=== PATIENT | male | born 1950 | race Caucasian/White ===

== ENCOUNTER → 2016-07-23 | Outpatient (REF) | payer MEDICARE | LOC: M SFHCCLAY 10:25 | PROVIDERS: ATTEND Family Medicine | DX: E11.9 Type 2 diabetes mellitus without complications (principal) ==

== ENCOUNTER → 2016-11-14 | Outpatient (REF) | payer MEDICARE ==
[2016-11-14 18:46] LABS: ALBUMIN 3.8 GM/DL (3.2-5.2); ANION GAP 6 MEQ/L (8-16); BLOOD UREA NITROGEN 27 MG/DL (7-18); CALCIUM LEVEL 8.5 MG/DL (8.8-10.2); CARBON DIOXIDE LEVEL 30 MEQ/L (21-32); CHLORIDE LEVEL 107 MEQ/L (98-107); CREATININE FOR GFR 1.24 MG/DL (0.70-1.30); GLOMERULAR FILTRATION RATE > 60.0 (>49); MAGNESIUM LEVEL 2.4 MG/DL (1.8-2.4); PHOSPHORUS LEVEL 3.7 MG/DL (2.5-4.9); POTASSIUM SERUM 4.6 MEQ/L (3.5-5.1); SODIUM LEVEL 143 MEQ/L (136-145)
[2016-11-14 19:38] LABS: GLUCOSE, FASTING 33 MG/DL (80-110)
== END ==
LOC: M LABDRAWC 17:18
PROVIDERS: ATTEND Physician Assistant
DX: I50.42 Chronic combined systolic (congestive) and diastolic (congestive) heart failure (principal); E11.9 Type 2 diabetes mellitus without complications; I25.810 Atherosclerosis of coronary artery bypass graft(s) without angina pectoris; G47.33 Obstructive sleep apnea (adult) (pediatric); Z68.41 Body mass index [BMI] 40.0-44.9, adult; Z79.4 Long term (current) use of insulin; Z79.82 Long term (current) use of aspirin; Z79.899 Other long term (current) drug therapy

== ENCOUNTER → 2016-11-14 | Outpatient (REF) | payer MEDICARE | LOC: M SFHCCLAY 14:04 | PROVIDERS: ATTEND Family Medicine | DX: E11.9 Type 2 diabetes mellitus without complications (principal) ==

== ENCOUNTER → 2016-12-31 | Outpatient (REF) | payer MEDICARE ==
[~2016-12-31] MED LIST: ALLO100T PO; AMLO10TA2 PO; ATOR80TA59 PO; CARV25TA PO; CLOP75TA2 PO; EYE5SOL OP; HUMU70IN SC; HUMU70IN SQ; ISOS120T4 PO; MAG400TA PO; NITR4TASL SL; OMEP20CA3 PO; POTA1TAB23 PO; RAMI10CA PO; SPIR25TA2 PO; TORS10TA3 PO
== END ==
LOC: M SFHCCLAY 11:17
PROVIDERS: ATTEND Family Medicine
DX: Z11.59 Encounter for screening for other viral diseases (principal)

== ENCOUNTER → 2017-02-14 | Outpatient (CLI) | payer MEDICARE ==
[2017-02-14 12:11] LABS: ANION GAP 5 MEQ/L (8-16); BLOOD UREA NITROGEN 29 MG/DL (7-18); CALCIUM LEVEL 8.7 MG/DL (8.8-10.2); CARBON DIOXIDE LEVEL 30 MEQ/L (21-32); CHLORIDE LEVEL 106 MEQ/L (98-107); CREATININE FOR GFR 1.14 MG/DL (0.70-1.30); GLOMERULAR FILTRATION RATE > 60.0 (>49); GLUCOSE, FASTING 45 MG/DL (80-110); POTASSIUM SERUM 4.3 MEQ/L (3.5-5.1); SODIUM LEVEL 141 MEQ/L (136-145)
== END ==
LOC: M LAB 10:43
PROVIDERS: ATTEND Ophthalmology
DX: E11.9 Type 2 diabetes mellitus without complications (principal)

== ENCOUNTER 2017-02-27 07:07 | Day surgery (SDC) | payer MEDICARE ==
[~2017-02-27] VITALS: Ht 180.3 cm; Wt 127.0 kg
[~2017-02-27 07:07] MED LIST changes: -EYE5SOL OP; +OFLOXACIN 0.3 % (OCUFLOX) OPTH SOL 5ML OD ONE; +PHENYLEPHRINE 2.5% OPHTH SOL 2ML OD ONE; +PROPARACAINE 0.5% OPHTH SOL 15ML OD ONE; +TROPICAMIDE 1% OPHTH SOLN 2ML OD ONE
[2017-02-27] MEDS ORDERED: POVIDONE-IODINE 5% OPHTH PREP SOL 30ML As Ordered ONE (07:53)
[2017-02-27] MEDS ORDERED: BALANCED SALT IRRIGATION SOLUTION 500ML BAG (FOR OR EYE MACHINE) As Ordered ONE (07:53)
[2017-02-27] MEDS ORDERED: ACETYLCHOLINE OPHTH SOLN 1% 2ML (MIOCHOL-E) As Ordered ONE (07:53)
[2017-02-27] MEDS ORDERED: LIDOCAINE 0.75%/EPINEPHRINE 0.025% IN BSS 1ML SYR INTRACAMERAL (OR ONLY) As Ordered ONE (07:54)
[2017-02-27] MEDS ORDERED: CEFUROXIME 1MG/0.1ML INTRACAMERAL INJ As Ordered ONE (07:54)
[2017-02-27] MEDS ORDERED: DUOVISC (0.50ML VISCOAT/0.55ML PROVISC) OPHTH KIT As Ordered ONE (07:55)
[2017-02-27] MEDS ORDERED: TETRACAINE 0.5% OPHTH SOLN 4ML As Ordered ONE (08:15)
[2017-02-27] MEDS ORDERED: fentaNYL 100 MCG/2 ML INJECTION (J3010) As Ordered ONE (08:18)
[2017-02-27] MEDS ORDERED: MIDAZOLAM INJ 2 MG/2 ML VIAL (J2250) As Ordered ONE (08:18)
[2017-02-27 09:20] VITALS: BP 107/56
[2017-02-27] MEDS ORDERED: LR 500 ML IV ONE (10:00)
--- NOTE | 2017-02-28 10:52 | RO ---
DATE OF PROCEDURE: 02/27/2017 PREOPERATIVE DIAGNOSIS: Visually significant nuclear sclerotic cataract right eye. POSTOPERATIVE DIAGNOSIS: Visually significant nuclear sclerotic cataract right eye. PROCEDURE: Cataract extraction with use of phacoemulsification, and placement of intraocular lens, AU00T0, 21.5D, right eye. SURGEON: Michael Nunn DO TANNER [facility] DRUM CONTINUOUS PROCESS: ANESTHESIA: Local with monitored anesthesia care (MAC). COMPLICATIONS: None. POSTOPERATIVE CONDITION: Stable. INDICATION FOR SURGERY: Blurred vision right eye affecting patient's activities of daily living. DESCRIPTION OF PROCEDURE: The patient was seen in the preoperative area and properly identified. The correct operative eye was identified and marked. Attention was turned to that eye. The patient received topical antibiotics in the preoperative area. The patient then received topical dilating drops consisting of Tropicamide and Phenylephrine. The patient was then transferred to the operating room. The correct side was re-identified. The patient received topical anesthetics and antibiotics on the surface of the eye. The eye was prepped and draped in a sterile fashion. The upper and lower eyelids were isolated with Tegaderm tape, and the lids were held open with an adjustable speculum. Using a sideport blade, a paracentesis incision was made. Intraocular preservative-free lidocaine was then injected into the anterior chamber. Viscoelastic was then injected into the anterior chamber through the paracentesis. Using a 2.4 mm sharp-tipped keratome, the anterior chamber was entered via a temporal clear corneal incision. A continuous curvilinear capsulorrhexis was created with the aid of a 26g cystotome and Utrata forceps. Hydrodissection was performed with balanced salt solution (BSS) on a blunt cannula until the nucleus was freely mobile. The crystalline lens was phacoemulsified and aspirated. Additional cohesive viscoelastic was placed into the capsular bag to deepen it. An AU00T0 lens 21.5D was placed into the capsular bag and confirmed by visualizing the continuous curvilinear capsulorrhexis. Additional irrigation and aspiration was used to remove cortical material and remaining viscoelastic. The clear corneal incision was hydrated with BSS on a blunt cannula. The lens was well positioned. The incisions were then tested for leaks and found to be negative. The eye was then palpated for appropriate pressure and adjusted accordingly with BSS. The eyelid speculum was carefully removed. A shield was placed. The patient tolerated the procedure well and was discharged to the recovery unit in a stable condition. [facility]
[2017-03-17] MEDS ORDERED: EYE5SOL OP (14:56)
== END 2017-02-27 09:30 | disposition home or self-care (01) ==
LOC: M SDC 07:07
PROVIDERS: ATTEND Ophthalmology
DX: H25.11 Age-related nuclear cataract, right eye (principal); E11.42 Type 2 diabetes mellitus with diabetic polyneuropathy; I25.810 Atherosclerosis of coronary artery bypass graft(s) without angina pectoris; I11.0 Hypertensive heart disease with heart failure; I25.2 Old myocardial infarction; I50.42 Chronic combined systolic (congestive) and diastolic (congestive) heart failure; I25.5 Ischemic cardiomyopathy; I35.8 Other nonrheumatic aortic valve disorders; I34.8 Other nonrheumatic mitral valve disorders; E78.2 Mixed hyperlipidemia; T88.59XD Other complications of anesthesia, subsequent encounter; M10.9 Gout, unspecified; Z88.8 Allergy status to other drugs, medicaments and biological substances; Z79.899 Other long term (current) drug therapy; Z79.82 Long term (current) use of aspirin; Z79.4 Long term (current) use of insulin; Z95.810 Presence of automatic (implantable) cardiac defibrillator; Z95.1 Presence of aortocoronary bypass graft
CPT/HCPCS: 66984; J2250; J3010; V2632

== ENCOUNTER → 2017-03-20 | Day surgery (SDC) | payer MEDICARE ==
[~2017-03-20] VITALS: Ht 180.3 cm; Wt 126.6 kg
[~2017-03-20] MED LIST changes: +ACETYLCHOLINE OPHTH SOLN 1% 2ML (MIOCHOL-E) As Ordered ONE; +BALANCED SALT IRRIGATION SOLUTION 500ML BAG (FOR OR EYE MACHINE) As Ordered ONE; +CEFUROXIME 1MG/0.1ML INTRACAMERAL INJ As Ordered ONE; +DUOVISC (0.50ML VISCOAT/0.55ML PROVISC) OPHTH KIT As Ordered ONE; +EYE5SOL OP; +LIDOCAINE 0.75%/EPINEPHRINE 0.025% IN BSS 1ML SYR INTRACAMERAL (OR ONLY) As Ordered ONE; +LR 1,000 ML IV SCH; +OFLOXACIN 0.3 % (OCUFLOX) OPTH SOL 5ML As Ordered ONE; -OFLOXACIN 0.3 % (OCUFLOX) OPTH SOL 5ML OD ONE; +OFLOXACIN 0.3 % (OCUFLOX) OPTH SOL 5ML OS ONE; -PHENYLEPHRINE 2.5% OPHTH SOL 2ML OD ONE; +PHENYLEPHRINE 2.5% OPHTH SOL 2ML OS ONE; +POVIDONE-IODINE 5% OPHTH PREP SOL 30ML As Ordered ONE; -PROPARACAINE 0.5% OPHTH SOL 15ML OD ONE; +PROPARACAINE 0.5% OPHTH SOL 15ML OS ONE; +TETRACAINE 0.5% OPHTH SOLN 4ML As Ordered ONE; -TROPICAMIDE 1% OPHTH SOLN 2ML OD ONE; +TROPICAMIDE 1% OPHTH SOLN 2ML OS ONE
== END | disposition home or self-care (01) ==
LOC: M SDC 06:45
PROVIDERS: ATTEND Ophthalmology
DX: H25.9 Unspecified age-related cataract (principal); Z53.09 Procedure and treatment not carried out because of other contraindication

== ENCOUNTER → 2017-04-21 | Outpatient (REF) | payer MEDICARE ==
[~2017-04-21] MED LIST changes: -ACETYLCHOLINE OPHTH SOLN 1% 2ML (MIOCHOL-E) As Ordered ONE; -BALANCED SALT IRRIGATION SOLUTION 500ML BAG (FOR OR EYE MACHINE) As Ordered ONE; -CEFUROXIME 1MG/0.1ML INTRACAMERAL INJ As Ordered ONE; -DUOVISC (0.50ML VISCOAT/0.55ML PROVISC) OPHTH KIT As Ordered ONE; -LIDOCAINE 0.75%/EPINEPHRINE 0.025% IN BSS 1ML SYR INTRACAMERAL (OR ONLY) As Ordered ONE; -LR 1,000 ML IV SCH; -OFLOXACIN 0.3 % (OCUFLOX) OPTH SOL 5ML As Ordered ONE; -OFLOXACIN 0.3 % (OCUFLOX) OPTH SOL 5ML OS ONE; -PHENYLEPHRINE 2.5% OPHTH SOL 2ML OS ONE; -POVIDONE-IODINE 5% OPHTH PREP SOL 30ML As Ordered ONE; -PROPARACAINE 0.5% OPHTH SOL 15ML OS ONE; -TETRACAINE 0.5% OPHTH SOLN 4ML As Ordered ONE; -TROPICAMIDE 1% OPHTH SOLN 2ML OS ONE
[2017-04-21 14:02] LABS: ALBUMIN 3.8 GM/DL (3.2-5.2); ANION GAP 8 MEQ/L (8-16); BLOOD UREA NITROGEN 25 MG/DL (7-18); CALCIUM LEVEL 8.9 MG/DL (8.8-10.2); CARBON DIOXIDE LEVEL 30 MEQ/L (21-32); CHLORIDE LEVEL 104 MEQ/L (98-107); CREATININE FOR GFR 1.01 MG/DL (0.70-1.30); GLOMERULAR FILTRATION RATE > 60.0 (>49); GLUCOSE, FASTING 135 MG/DL (80-110); MAGNESIUM LEVEL 2.2 MG/DL (1.8-2.4); PHOSPHORUS LEVEL 3.8 MG/DL (2.5-4.9); POTASSIUM SERUM 4.4 MEQ/L (3.5-5.1); SODIUM LEVEL 142 MEQ/L (136-145)
== END ==
LOC: M LAB REF 11:34
PROVIDERS: ATTEND Physician Assistant
DX: I50.42 Chronic combined systolic (congestive) and diastolic (congestive) heart failure (principal)

== ENCOUNTER 2017-07-02 08:28 | Day surgery (SDC) | payer MEDICARE ==
[2017-07-02] MEDS ORDERED: NS 1,000 ML IV (08:45)
[2017-07-02] MEDS ORDERED: PROPOFOL 500 MG/50 ML VIAL As Ordered (09:57)
[2017-07-02] MEDS ORDERED: LIDOCAINE 2% INJ 100 MG/5 ML SDV (FOR ANES.) As Ordered (09:57)
== END 2017-07-02 10:49 | disposition home or self-care (01) ==
LOC: M OPP 08:28
DX: Z12.11 Encounter for screening for malignant neoplasm of colon (principal); D12.5 Benign neoplasm of sigmoid colon; D12.3 Benign neoplasm of transverse colon; K64.0 First degree hemorrhoids; K57.30 Diverticulosis of large intestine without perforation or abscess without bleeding; I11.0 Hypertensive heart disease with heart failure; I25.2 Old myocardial infarction; Z95.1 Presence of aortocoronary bypass graft; Z95.5 Presence of coronary angioplasty implant and graft; Z95.810 Presence of automatic (implantable) cardiac defibrillator; I20.9 Angina pectoris, unspecified; E78.5 Hyperlipidemia, unspecified; E11.9 Type 2 diabetes mellitus without complications; M10.9 Gout, unspecified; R12 Heartburn; K21.9 Gastro-esophageal reflux disease without esophagitis; M19.90 Unspecified osteoarthritis, unspecified site; G47.30 Sleep apnea, unspecified; Z79.899 Other long term (current) drug therapy; Z79.82 Long term (current) use of aspirin; Z79.4 Long term (current) use of insulin
CPT/HCPCS: 45385

== ENCOUNTER → 2017-07-22 | Outpatient (REF) | payer MEDICARE ==
[2017-07-22 12:45] LABS: ALBUMIN 3.9 GM/DL (3.2-5.2); ANION GAP 8 MEQ/L (8-16); BLOOD UREA NITROGEN 27 MG/DL (7-18); CALCIUM LEVEL 8.7 MG/DL (8.8-10.2); CARBON DIOXIDE LEVEL 29 MEQ/L (21-32); CHLORIDE LEVEL 102 MEQ/L (98-107); CREATININE FOR GFR 1.26 MG/DL (0.70-1.30); GLOMERULAR FILTRATION RATE > 60.0 (>49); GLUCOSE, FASTING 164 MG/DL (70-100); MAGNESIUM LEVEL 2.2 MG/DL (1.8-2.4); PHOSPHORUS LEVEL 4.3 MG/DL (2.5-4.9); SODIUM LEVEL 139 MEQ/L (136-145)
== END ==
LOC: M LABDRAWC 12:04
DX: I50.42 Chronic combined systolic (congestive) and diastolic (congestive) heart failure (principal); E11.42 Type 2 diabetes mellitus with diabetic polyneuropathy
CPT/HCPCS: 83735

== ENCOUNTER → 2017-07-22 | Outpatient (REF) | payer MEDICARE ==
[2017-07-22 12:11] LABS: ESTIMATED AVERAGE GLUCOSE 148 MG/DL (60-110); HEMOGLOBIN A1c 6.8 %
== END ==
LOC: M SFHCCLAY 09:11
DX: E11.42 Type 2 diabetes mellitus with diabetic polyneuropathy (principal)
CPT/HCPCS: 83036

== ENCOUNTER → 2017-10-21 | Outpatient (REF) | payer MEDICARE ==
[2017-10-21 11:40] LABS: ALBUMIN 3.9 GM/DL (3.2-5.2); ANION GAP 9 MEQ/L (8-16); BLOOD UREA NITROGEN 25 MG/DL (7-18); CALCIUM LEVEL 8.5 MG/DL (8.8-10.2); CARBON DIOXIDE LEVEL 26 MEQ/L (21-32); CHLORIDE LEVEL 107 MEQ/L (98-107); CREATININE FOR GFR 1.43 MG/DL (0.70-1.30); GLUCOSE, FASTING 175 MG/DL (70-100); MAGNESIUM LEVEL 2.3 MG/DL (1.8-2.4); POTASSIUM SERUM 4.5 MEQ/L (3.5-5.1); SODIUM LEVEL 142 MEQ/L (136-145)
== END ==
LOC: M LAB REF 11:15
DX: I50.42 Chronic combined systolic (congestive) and diastolic (congestive) heart failure (principal)
CPT/HCPCS: 83735

== ENCOUNTER → 2018-02-11 | Outpatient (REF) | payer MEDICARE ==
[2018-02-11 12:52] LABS: CHOLESTEROL LEVEL 157 MG/DL (<200); CHOLESTEROL RISK RATIO 4.361 (<5); HDL CHOLESTEROL 36 MG/DL (>40); LDL CHOLESTEROL 87 MG/DL (<100); NON-HDL-C 121 MG/DL; TRIGLYCERIDES LEVEL 169 MG/DL (<150)
[2018-02-11 15:41] LABS: ESTIMATED AVERAGE GLUCOSE 140 MG/DL (60-110); HEMOGLOBIN A1c 6.5 %
== END ==
LOC: M SFHCCLAY 07:10
DX: E11.42 Type 2 diabetes mellitus with diabetic polyneuropathy (principal); I25.810 Atherosclerosis of coronary artery bypass graft(s) without angina pectoris; I50.42 Chronic combined systolic (congestive) and diastolic (congestive) heart failure
CPT/HCPCS: 83735

== ENCOUNTER → 2018-02-11 | Outpatient (REF) | payer MEDICARE ==
[2018-02-11 13:11] LABS: ANION GAP 8 MEQ/L (8-16); BLOOD UREA NITROGEN 20 MG/DL (7-18); CALCIUM LEVEL 8.3 MG/DL (8.8-10.2); CARBON DIOXIDE LEVEL 27 MEQ/L (21-32); CHLORIDE LEVEL 105 MEQ/L (98-107); GLOMERULAR FILTRATION RATE > 60.0 (>49); GLUCOSE, FASTING 201 MG/DL (70-100); POTASSIUM SERUM 4.3 MEQ/L (3.5-5.1); SODIUM LEVEL 140 MEQ/L (136-145)
== END ==
LOC: M LABDRAWC 11:35
DX: I50.42 Chronic combined systolic (congestive) and diastolic (congestive) heart failure (principal)

== ENCOUNTER → 2018-04-29 | Outpatient (REF) | payer MEDICARE ==
[2018-04-29 11:39] LABS: BASO # 0.1 10^3/uL (0.0-0.2); BASO % 1.2 % (0.0-1.0); EOS # 0.3 10^3/uL (0.0-0.50); EOS % 3.5 % (0.0-3.0); HEMATOCRIT 39.8 % (42.0-52.0); HEMOGLOBIN 12.9 g/dl (13.5-17.5); IMMATURE GRANULOCYTE % 0.4 % (0-3.0); LYMPH # 1.4 10^3/uL (1.5-4.5); LYMPH % 15.2 % (24.0-44.0); MEAN CORPUSCULAR HEMOGLOBIN 28.9 pg (27.0-33.0); MEAN CORPUSCULAR HGB CONC 32.4 g/dl (32.0-36.5); MEAN CORPUSCULAR VOLUME 89.2 fl (80.0-96.0); MONO % 11.5 % (0.0-5.0); NEUTROPHILS # 6.1 10^3/uL (1.8-7.7); NEUTROPHILS % 68.2 % (36.0-66.0); PLATELET COUNT, AUTOMATED 245 10^3/uL (150-450); RED BLOOD COUNT 4.46 10^6/uL (4.30-6.10); RED CELL DISTRIBUTION WIDTH 13.4 % (11.5-14.5); WHITE BLOOD COUNT 8.9 10^3/uL (4.0-10.0)
[2018-04-29 11:54] LABS: ANION GAP 7 MEQ/L (8-16); BLOOD UREA NITROGEN 25 MG/DL (7-18); CALCIUM LEVEL 8.7 MG/DL (8.8-10.2); CARBON DIOXIDE LEVEL 30 MEQ/L (21-32); CHLORIDE LEVEL 105 MEQ/L (98-107); CREATININE FOR GFR 1.18 MG/DL (0.70-1.30); GLOMERULAR FILTRATION RATE > 60.0 (>49); GLUCOSE, FASTING 138 MG/DL (70-100); POTASSIUM SERUM 4.4 MEQ/L (3.5-5.1); SODIUM LEVEL 142 MEQ/L (136-145)
== END ==
LOC: M LABDRAWC 11:12
DX: R94.39 Abnormal result of other cardiovascular function study (principal); I50.9 Heart failure, unspecified; I25.10 Atherosclerotic heart disease of native coronary artery without angina pectoris
CPT/HCPCS: 80048

== ENCOUNTER → 2018-05-18 | Outpatient (REF) | payer MEDICARE ==
[~2018-05-18] MED LIST changes: -AMLO10TA2 PO; +AMLO10TA5 PO; +ASPI81TA85 PO; +MULT1TAB10 PO; -RAMI10CA PO; +RAMI1CAP26 PO; +SPIR-10 PO; -SPIR25TA2 PO
[2018-05-18 13:09] LABS: BLOOD UREA NITROGEN 21 MG/DL (7-18); CALCIUM LEVEL 8.3 MG/DL (8.8-10.2); CARBON DIOXIDE LEVEL 30 MEQ/L (21-32); CHLORIDE LEVEL 107 MEQ/L (98-107); CREATININE FOR GFR 1.07 MG/DL (0.70-1.30); GLOMERULAR FILTRATION RATE > 60.0 (>49); GLUCOSE, FASTING 158 MG/DL (70-100); POTASSIUM SERUM 3.9 MEQ/L (3.5-5.1); SODIUM LEVEL 143 MEQ/L (136-145)
== END ==
LOC: M LABDRAWC 12:52
PROVIDERS: ATTEND Physician Assistant
DX: I50.42 Chronic combined systolic (congestive) and diastolic (congestive) heart failure (principal); I25.5 Ischemic cardiomyopathy

== ENCOUNTER → 2018-06-30 | Outpatient (REF) | payer MEDICARE ==
[2018-06-30 11:44] LABS: BLOOD UREA NITROGEN 29 MG/DL (7-18); CALCIUM LEVEL 8.7 MG/DL (8.8-10.2); CARBON DIOXIDE LEVEL 27 MEQ/L (21-32); CHLORIDE LEVEL 105 MEQ/L (98-107); CREATININE FOR GFR 1.12 MG/DL (0.70-1.30); GLOMERULAR FILTRATION RATE > 60.0 (>49); GLUCOSE, FASTING 188 MG/DL (70-100); MAGNESIUM LEVEL 2.3 MG/DL (1.8-2.4); POTASSIUM SERUM 4.7 MEQ/L (3.5-5.1); SODIUM LEVEL 140 MEQ/L (136-145)
== END ==
LOC: M LABDRAWC 11:09
PROVIDERS: ATTEND Physician Assistant
DX: I50.42 Chronic combined systolic (congestive) and diastolic (congestive) heart failure (principal)

== ENCOUNTER → 2018-08-04 | Outpatient (REF) | payer MEDICARE ==
[2018-08-04 17:16] LABS: CREATININE, URINE 86.4 MG/DL; MALB URINE SIEMENS < 5.0 MG/L; MAU/CREAT RATIO 5.7 MCG/MG (0.0-30.0)
[2018-08-04 17:21] LABS: ALBUMIN 3.8 GM/DL (3.2-5.2); ALT/SGPT 32 U/L (12-78); BLOOD UREA NITROGEN 23 MG/DL (7-18); CALCIUM LEVEL 8.4 MG/DL (8.8-10.2); CARBON DIOXIDE LEVEL 28 MEQ/L (21-32); CHLORIDE LEVEL 106 MEQ/L (98-107); CREATININE FOR GFR 0.99 MG/DL (0.70-1.30); GLOMERULAR FILTRATION RATE > 60.0 (>49); GLUCOSE, FASTING 62 MG/DL (70-100); PHOSPHORUS LEVEL 3.6 MG/DL (2.5-4.9); POTASSIUM SERUM 4.5 MEQ/L (3.5-5.1); SODIUM LEVEL 142 MEQ/L (136-145); URIC ACID 7.3 MG/DL (3.5-7.2)
[2018-08-04 17:39] LABS: HEMOGLOBIN A1c 7.1 %
== END ==
LOC: M SFHCCLAY 13:33
PROVIDERS: ATTEND Family Medicine
DX: E11.42 Type 2 diabetes mellitus with diabetic polyneuropathy (principal); I25.810 Atherosclerosis of coronary artery bypass graft(s) without angina pectoris; I10 Essential (primary) hypertension; M10.9 Gout, unspecified

== ENCOUNTER → 2018-12-17 | Outpatient (REF) | payer MEDICARE ==
[~2018-12-17] MED LIST changes: -ISOS120T4 PO; +ISOS120T7 PO; -OMEP20CA3 PO; +OMEP20CA4 PO
[2018-12-17 18:38] LABS: CREATININE, URINE 34.1 MG/DL; MALB URINE SIEMENS < 5.0 MG/L; MAU/CREAT RATIO 14.6 MCG/MG (0.0-30.0)
[2018-12-17 19:27] LABS: HEMOGLOBIN A1c 7.2 %
== END ==
LOC: M SFHCCLAY 12:39
PROVIDERS: ATTEND Family Medicine
DX: E11.9 Type 2 diabetes mellitus without complications (principal); I10 Essential (primary) hypertension

== ENCOUNTER → 2018-12-17 | Outpatient (REF) | payer MEDICARE ==
[2018-12-17 18:57] LABS: BLOOD UREA NITROGEN 28 MG/DL (7-18); CALCIUM LEVEL 9.1 MG/DL (8.8-10.2); CARBON DIOXIDE LEVEL 29 MEQ/L (21-32); CHLORIDE LEVEL 106 MEQ/L (98-107); GLOMERULAR FILTRATION RATE > 60.0 (>49); GLUCOSE, FASTING 142 MG/DL (70-100); MAGNESIUM LEVEL 2.5 MG/DL (1.8-2.4); POTASSIUM SERUM 4.5 MEQ/L (3.5-5.1); SODIUM LEVEL 140 MEQ/L (136-145)
== END ==
LOC: M LAB REF 18:30
PROVIDERS: ATTEND Physician Assistant
DX: I50.42 Chronic combined systolic (congestive) and diastolic (congestive) heart failure (principal)

== ENCOUNTER → 2019-03-30 | Outpatient (REF) | payer MEDICARE ==
[2019-03-30 11:36] LABS: BLOOD UREA NITROGEN 33 MG/DL (7-18); CARBON DIOXIDE LEVEL 28 MEQ/L (21-32); CHLORIDE LEVEL 105 MEQ/L (98-107); CREATININE FOR GFR 1.25 MG/DL (0.70-1.30); GLOMERULAR FILTRATION RATE > 60.0 (>49); GLUCOSE, FASTING 226 MG/DL (70-100); POTASSIUM SERUM 4.7 MEQ/L (3.5-5.1); SODIUM LEVEL 139 MEQ/L (136-145)
== END ==
LOC: M LABDRAWC 11:17
PROVIDERS: ATTEND Physician Assistant
DX: I25.5 Ischemic cardiomyopathy (principal); I50.42 Chronic combined systolic (congestive) and diastolic (congestive) heart failure

== ENCOUNTER → 2019-05-12 | Outpatient (REF) | payer MEDICARE ==
[~2019-05-12] MED LIST changes: +OMEP-172 PO; -OMEP20CA4 PO
[2019-05-12 16:53] LABS: BLOOD UREA NITROGEN 21 MG/DL (7-18); CALCIUM LEVEL 8.9 MG/DL (8.8-10.2); CARBON DIOXIDE LEVEL 30 MEQ/L (21-32); CHLORIDE LEVEL 103 MEQ/L (98-107); CREATININE FOR GFR 1.13 MG/DL (0.70-1.30); GLOMERULAR FILTRATION RATE > 60.0 (>49); GLUCOSE, FASTING 271 MG/DL (70-100); POTASSIUM SERUM 4.5 MEQ/L (3.5-5.1); SODIUM LEVEL 138 MEQ/L (136-145)
[2019-05-12 17:03] LABS: HEMOGLOBIN A1c 8.4 %
== END ==
LOC: M SFHCCLAY 10:48
PROVIDERS: ATTEND Family Medicine
DX: E11.42 Type 2 diabetes mellitus with diabetic polyneuropathy (principal)

== ENCOUNTER → 2019-07-07 | Outpatient (REF) | payer MEDICARE ==
[~2019-07-07] MED LIST changes: -OMEP-172 PO; +OMEP1CAP73 PO
[2019-07-07 11:55] LABS: BLOOD UREA NITROGEN 27 MG/DL (7-18); CALCIUM LEVEL 8.6 MG/DL (8.8-10.2); CARBON DIOXIDE LEVEL 29 MEQ/L (21-32); CHLORIDE LEVEL 104 MEQ/L (98-107); CREATININE FOR GFR 1.07 MG/DL (0.70-1.30); GLOMERULAR FILTRATION RATE > 60.0 (>49); GLUCOSE, FASTING 186 MG/DL (70-100); MAGNESIUM LEVEL 2.1 MG/DL (1.8-2.4); POTASSIUM SERUM 4.4 MEQ/L (3.5-5.1); SODIUM LEVEL 140 MEQ/L (136-145)
== END ==
LOC: M LABDRAWC 07:11
PROVIDERS: ATTEND Physician Assistant
DX: I50.42 Chronic combined systolic (congestive) and diastolic (congestive) heart failure (principal); I25.5 Ischemic cardiomyopathy

== ENCOUNTER → 2019-09-22 | Outpatient (REF) | payer MEDICARE ==
[~2019-09-22] MED LIST changes: -EYE5SOL OP; +TETR15DR2 OP
[2019-09-22 12:16] LABS: BLOOD UREA NITROGEN 29 MG/DL (7-18); CALCIUM LEVEL 8.7 MG/DL (8.8-10.2); CARBON DIOXIDE LEVEL 29 MEQ/L (21-32); CHLORIDE LEVEL 105 MEQ/L (98-107); CREATININE FOR GFR 1.27 MG/DL (0.70-1.30); GLOMERULAR FILTRATION RATE > 60.0 (>49); GLUCOSE, FASTING 222 MG/DL (70-100); MAGNESIUM LEVEL 2.2 MG/DL (1.8-2.4); POTASSIUM SERUM 4.9 MEQ/L (3.5-5.1); SODIUM LEVEL 138 MEQ/L (136-145)
== END ==
LOC: M LABDRAWC 11:25
PROVIDERS: ATTEND Physician Assistant
DX: I50.42 Chronic combined systolic (congestive) and diastolic (congestive) heart failure (principal); I25.5 Ischemic cardiomyopathy

== ENCOUNTER → 2019-09-30 | Outpatient (REF) | payer MEDICARE ==
[2019-09-30 17:31] LABS: HEMOGLOBIN 12.9 g/dl (13.5-17.5); MEAN CORPUSCULAR HEMOGLOBIN 29.6 pg (27.0-33.0); MEAN CORPUSCULAR HGB CONC 33.1 g/dl (32.0-36.5); MEAN CORPUSCULAR VOLUME 89.4 fl (80.0-96.0); PLATELET COUNT, AUTOMATED 235 10^3/uL (150-450); RED BLOOD COUNT 4.36 10^6/uL (4.30-6.10); WHITE BLOOD COUNT 8.4 10^3/uL (4.0-10.0)
== END ==
LOC: M LABDRAWC 16:13
PROVIDERS: ATTEND Physician Assistant
DX: I95.1 Orthostatic hypotension (principal); R41.82 Altered mental status, unspecified

== ENCOUNTER → 2019-10-19 | Outpatient (CLI) | payer MEDICARE ==
--- NOTE | 2019-10-19 17:53 | REP ---
CT BRAIN WITHOUT CONTRAST: REASON FOR EXAM: Multiple falls. PRIORS: None. TECHNIQUE: 4.5 mm contiguous transaxial sections were obtained from the skull base to the cerebral convexities with thin cuts through the posterior fossa without the administration of intravenous contrast. FINDINGS: The ventricles and sulci are consistent with the patient's age. There are no extra-axial fluid collections. There is no mass effect. The deep cerebral white matter is consistent with the patient's age. The orbital and petrous structures, cerebellopontine angles, and posterior fossa are unremarkable. The sella turcica, cavernous, and paracavernous structures are essentially unremarkable. There is mild mucosal thickening in the ethmoid bulla. The paranasal sinuses are otherwise clear. There are, what appear to be, some mild chronic mastoid air cell changes on the right. Images of the skull base show no gross abnormality. IMPRESSION: Essentially unremarkable CT examination of the brain. Electronically Signed by Chino Alvarenga DO 10/20/2019 09:38 A
== END ==
LOC: M RAD 14:27
PROVIDERS: ATTEND Family Medicine
DX: R29.6 Repeated falls (principal)

== ENCOUNTER → 2019-11-02 | Outpatient (REF) | payer MEDICARE ==
[~2019-11-02] MED LIST changes: +TETR15DR16 OP; -TETR15DR2 OP
[2019-11-02 12:16] LABS: BLOOD UREA NITROGEN 21 MG/DL (7-18); CALCIUM LEVEL 8.7 MG/DL (8.8-10.2); CARBON DIOXIDE LEVEL 27 MEQ/L (21-32); CHLORIDE LEVEL 110 MEQ/L (98-107); CREATININE FOR GFR 0.98 MG/DL (0.70-1.30); GLOMERULAR FILTRATION RATE > 60.0 (>49); GLUCOSE, FASTING 127 MG/DL (70-100); SODIUM LEVEL 144 MEQ/L (136-145)
== END ==
LOC: M LABDRAWC 11:26
PROVIDERS: ATTEND Physician Assistant
DX: I95.1 Orthostatic hypotension (principal)

== ENCOUNTER → 2019-11-10 | Outpatient (REF) | payer MEDICARE ==
[~2019-11-10] MED LIST changes: +ACET1TAB55 PO; -AMLO10TA5 PO; +AMLO1TAB25 PO; +ASPI81TA26 PO; -ASPI81TA85 PO; +ASPI81TA86 PO; +ATIV1TAB10 PO; +DOCU100C16 PO; +DURA25DI3 TOP; +FLOM0.4C39 PO; +HYOS125TA PO; +LACT10SO3 PO; -MAG400TA PO; +MAGN400T35 PO; +METO10TA2 PO; +MORP20SO3 PO; +MULTCAP PO; +OXYC1TAB15 PO; +PANT40TA29 PO; +QUET25TA3 PO; +RAMI1CAP22 PO
[2019-11-10 17:45] LABS: HEMOGLOBIN A1c 7.6 %
[2019-11-15 15:08] LABS: ACETYLCHOLINE RCPTOR BINDING A < 0.03 nmol/L (0.00-0.24); ALDOLASE 4.9 U/L (3.3-10.3)
== END ==
LOC: M SFHCCLAY 09:51
PROVIDERS: ATTEND Family Medicine
DX: R29.898 Other symptoms and signs involving the musculoskeletal system (principal); R26.89 Other abnormalities of gait and mobility; H53.2 Diplopia; Z95.810 Presence of automatic (implantable) cardiac defibrillator; E11.42 Type 2 diabetes mellitus with diabetic polyneuropathy

== ENCOUNTER → 2019-11-29 | Outpatient (REF) | payer MEDICARE ==
[~2019-11-29] MED LIST changes: +MAG400TA PO; -MAGN400T35 PO; +QUET1TAB7 PO; -QUET25TA3 PO
[2019-11-29 12:39] LABS: BLOOD UREA NITROGEN 24 MG/DL (7-18); CALCIUM LEVEL 8.7 MG/DL (8.8-10.2); CARBON DIOXIDE LEVEL 24 MEQ/L (21-32); CHLORIDE LEVEL 108 MEQ/L (98-107); CREATININE FOR GFR 0.88 MG/DL (0.70-1.30); GLOMERULAR FILTRATION RATE > 60.0 (>49); GLUCOSE, FASTING 191 MG/DL (70-100); MAGNESIUM LEVEL 2.1 MG/DL (1.8-2.4); POTASSIUM SERUM 4.3 MEQ/L (3.5-5.1); SODIUM LEVEL 139 MEQ/L (136-145)
== END ==
LOC: M LABDRAWC 11:25
PROVIDERS: ATTEND Physician Assistant
DX: I50.42 Chronic combined systolic (congestive) and diastolic (congestive) heart failure (principal)

== ENCOUNTER → 2019-11-29 | Outpatient (REF) | payer MEDICARE | LOC: M LAB REF 11:12 | PROVIDERS: ATTEND Internal Medicine Cardiovascular Disease | DX: Z01.818 Encounter for other preprocedural examination (principal); Z11.59 Encounter for screening for other viral diseases ==

== ENCOUNTER → 2019-12-09 | Outpatient (REF) | payer MEDICARE ==
[2019-12-09 20:40] LABS: FOLATE > 24.0 NG/ML; FREE T4 1.08 NG/DL (0.76-1.46); RHEUMATOID FACTOR QUANT < 10.0 IU/ML (<15.0); TOTAL PROTEIN 6.4 GM/DL (6.4-8.2); VITAMIN B12 LEVEL 893 PG/ML
[2019-12-13 12:51] LABS: ALBUMIN 3.92 GM/DL (3.29-5.55); ALBUMIN % 61.3 % (55.8-66.1); ALPHA-1-GLOBULIN % 5.8 % (2.9-4.9); ALPHA-1-GLOBULINS 0.37 GM/DL (0.17-0.41); ALPHA-2-GLOBULINS % 12.5 % (7.1-11.8); BETA-1-GLOBULINS 0.36 GM/DL (0.28-0.60); BETA-1-GLOBULINS % 5.7 % (4.7-7.2); BETA-2-GLOBULINS % 4.7 % (3.2-6.5); GAMMA GLOBULINS 0.64 GM/DL (0.65-1.58)
[2020-01-10 14:42] LABS: ANTINUCLEAR ANTIBODIES DIRECT Negative (Negative); SJOGREN'S ANTI SS-A <0.2 AI (0.0-0.9); SJOGREN'S ANTI SS-B <0.2 AI (0.0-0.9); STRIATIONAL ANTIBODIES Negative (Neg:<1:40); VITAMIN B1 LEVEL WHOLE BLOOD 187.6 nmol/L (66.5-200.0); VITAMIN B6,PYRIDOXAL PHOSPHATE 19.9 ug/L (5.3-46.7)
[2020-02-08 14:50] LABS: VITAMIN E(ALPHA TOCOPHEROL) 12.1 mg/L (9.0-29.0)
== END ==
LOC: M LABDRAWC 15:54
PROVIDERS: ATTEND Psychiatry & Neurology Neurology
DX: R53.83 Other fatigue (principal); G62.9 Polyneuropathy, unspecified

== ENCOUNTER → 2020-01-24 | Outpatient (REF) | payer MEDICARE | LOC: M LABDRAWC 13:10 | PROVIDERS: ATTEND Psychiatry & Neurology Neurology | DX: G70.80 Lambert-Eaton syndrome, unspecified (principal) ==

== ENCOUNTER → 2020-01-27 | Outpatient (CLI) | payer MEDICARE ==
[~2020-01-27] MED LIST changes: +ISOVUE-370 76% 100ML VIAL As Ordered ONE
--- NOTE | 2020-01-27 08:44 | REPVR ---
PROCEDURE INFORMATION: Exam: CT Head Without And With Contrast Exam date and time: 01/27/2020 8:29 AM Age: 69 years old Clinical indication: Other: Weakness; Additional info: Muscle weakness, mets to noam? TECHNIQUE: Imaging protocol: Computed tomography of the head without and with intravenous contrast. Radiation optimization: All CT scans at this facility use at least one of these dose optimization techniques: automated exposure control; mA and/or kV adjustment per patient size (includes targeted exams where dose is matched to clinical indication); or iterative reconstruction. Contrast material: ISOVUE 370; Contrast volume: 75 ml; Contrast route: INTRAVENOUS (IV); COMPARISON: CT Head without contrast 10/19/2019 2:58 PM FINDINGS: Brain: There is mild diffuse brain atrophy. Patchy mild deep white matter hypodensity of the cerebral white matter are nonspecific, but likely secondary to microvascular ischemic change. There is no acute intracranial hemorrhage. No extra-axial fluid collection. No evidence of acute infarct. Lim white differentiation is intact. There is no evidence of abnormal contrast enhancement to suggest definite mass lesion. No evidence vasogenic edema. There is no mass effect or midline shift. Ventricles: Normal. No ventriculomegaly. Bones/joints: Unremarkable. No acute fracture. Sinuses: There is mucosal thickening in paranasal sinuses. There is a small right maxillary sinus retention cyst or polyp. Minimal lace-like secretions / mucoid stranding are unchanged in right frontal sinus. Mastoid air cells: Visualized mastoid air cells are stable with no significant effusion. Soft tissues: Unremarkable. IMPRESSION: 1. No evidence of acute intracranial abnormality. No evidence acute infarct, acute hemorrhage, or intracranial mass lesion. 2. Sinus findings as described. Electronically signed by: Bekah Falcon On 01/27/2020 08:44:29 AM
== END ==
LOC: M RAD 07:55
PROVIDERS: ATTEND Family Medicine
DX: G70.80 Lambert-Eaton syndrome, unspecified (principal); M62.81 Muscle weakness (generalized); C79.81 Secondary malignant neoplasm of breast
CPT/HCPCS: 70470; Q9967

== ENCOUNTER 2020-03-11 04:38 | Inpatient (IN) | payer MEDICARE ==
[~2020-03-11] VITALS: Ht 177.8 cm; Wt 110.7 kg
[~2020-03-11 04:38] MED LIST changes: -ACET1TAB55 PO; -ASPI81TA26 PO; -ATIV1TAB10 PO; -DOCU100C16 PO; -DURA25DI3 TOP; -FLOM0.4C39 PO; -HYOS125TA PO; -ISOVUE-370 76% 100ML VIAL As Ordered ONE; -LACT10SO3 PO; -METO10TA2 PO; -MORP20SO3 PO; -MULTCAP PO; -OXYC1TAB15 PO; -PANT40TA29 PO; -QUET1TAB7 PO; -RAMI1CAP22 PO
[2020-03-11 05:17] LABS: BASO # 0.1 10^3/uL (0.0-0.2); BASO % 0.7 % (0.0-1.0); EOS # 0.3 10^3/uL (0.0-0.5); EOS % 2.6 % (0.0-3.0); HEMATOCRIT 38.3 % (42.0-52.0); HEMOGLOBIN 12.1 g/dl (13.5-17.5); LYMPH # 1.1 10^3/uL (1.5-5.0); MEAN CORPUSCULAR HEMOGLOBIN 27.7 pg (27.0-33.0); MEAN CORPUSCULAR HGB CONC 31.6 g/dl (32.0-36.5); MEAN CORPUSCULAR VOLUME 87.6 fl (80.0-96.0); MONO # 1.5 10^3/uL (0.0-0.8); MONO % 14.3 % (0.0-5.0); NEUTROPHILS # 7.2 10^3/uL (1.5-8.5); NEUTROPHILS % 70.7 % (36.0-66.0); PLATELET COUNT, AUTOMATED 236 10^3/uL (150-450); RED BLOOD COUNT 4.37 10^6/uL (4.30-6.10); WHITE BLOOD COUNT 10.2 10^3/uL (4.0-10.0)
[2020-03-11 05:39] LABS: NT-PRO BNP 531 PG/ML (<125)
[2020-03-11] MEDS ORDERED: OXYC1TAB15 PO (05:40)
[2020-03-11] MEDS ORDERED: FLOM0.4C39 PO (05:40)
[2020-03-11] MEDS ORDERED: DURA25DI3 TOP (05:40)
--- NOTE | 2020-03-11 06:00 | REPVR ---
PROCEDURE INFORMATION: Exam: XR Chest, 1 View Exam date and time: 03/11/2020 5:36 AM Age: 69 years old Clinical indication: Other: Dyspnea/cough TECHNIQUE: Imaging protocol: XR of the chest Views: 1 view. COMPARISON: PA PORTABLE CHEST X-RAY 04/10/2019 3:03 PM FINDINGS: Tubes, catheters and devices: Left chest AICD. Lungs: Mild nonspecific bilateral perihilar reticulonodular opacities. Pleural space: Unremarkable. No pleural effusion. No pneumothorax. Heart/Mediastinum: See "Bones/joints" finding. Bones/joints: Status post median sternotomy CABG. IMPRESSION: No acute cardiopulmonary pathology. Electronically signed by: Jeevan Holden On 03/11/2020 05:59:41 AM
[2020-03-11] MEDS ORDERED: ISOVUE-370 76% 100ML VIAL As Ordered ONE (06:12)
[2020-03-11] MEDS ORDERED: FUROSEMIDE 40MG/4ML VIAL (J1940) IV ONE ×2 (06:15→09:30)
--- NOTE | 2020-03-11 06:55 | REPVR ---
PROCEDURE INFORMATION: Exam: CT Angiography Chest With Contrast Exam date and time: 03/11/2020 6:02 AM Age: 69 years old Clinical indication: Shortness of breath; Additional info: SOB HX pancreatic CA R/O pe TECHNIQUE: Imaging protocol: Computed tomographic angiography of the chest with intravenous contrast. 3D rendering (Not supervised by radiologist): MIP and/or 3D reconstructed images were created by the technologist. Radiation optimization: All CT scans at this facility use at least one of these dose optimization techniques: automated exposure control; mA and/or kV adjustment per patient size (includes targeted exams where dose is matched to clinical indication); or iterative reconstruction. Contrast material: ISO; Contrast volume: 75 ml; Contrast route: INTRAVENOUS (IV); COMPARISON: CR PORTABLE CHEST X-RAY 03/11/2020 5:24 AM FINDINGS: Tubes, catheters and devices: Left chest pacemaker. Pulmonary arteries: Normal. No pulmonary emboli. Aorta: Atherosclerotic disease of the thoracic aorta. Lungs: Patchy bilateral ground-glass opacities most pronounced in the right lung. Pleural space: Unremarkable. No pneumothorax. No pleural effusion. Heart: Status post median sternotomy and CABG. Cardiomegaly. Lymph nodes: Unremarkable. No enlarged lymph nodes. Liver: There are multiple centrally necrotic liver metastasis. Pancreas: Infiltrating pancreatic body mass inseparable from the celiac trunk. Mass measures at least 3.5 x 5 cm. Kidneys and ureters: Bilateral renal cortical atrophy and scarring. Intraperitoneal space: Small ascites. Bones/joints: Multilevel degenerative disease of the thoracic spine. Soft tissues: Unremarkable. IMPRESSION: No acute pulmonary embolic disease. Patchy nonspecific bilateral ground-glass opacities most pronounced in the right lung. Infiltrating pancreatic body mass inseparable from the celiac trunk. Mass measures at least 3.5 x 5 cm. Multiple centrally necrotic liver metastasis. Electronically signed by: Jeevan Holden On 03/11/2020 06:55:07 AM
--- NOTE | 2020-03-11 08:21 | ECGEPIP ---
[facility] - ED Test Date: 2020-03-11 Pat Name: SHAHRIAR MARIE Department: Room: - Gender: Male Proj Mgr: nr : [id number] Requested By: Luis Hernandez Order Number: [id number] Reading MD: Dick Vanegas Measurements Intervals [place] Rate: 96 P: 105 MT: 140 QRS: -8 QRSD: 122 T: 73 QT: 364 QTc: 460 Interpretive Statements SINUS RHYTHM INTRAVENTRICULAR CONDUCTION DELAY Nonspecific T wave abnormality Similar to tracing done 04-10-19 Electronically Signed on 03-11-2020 8:21:31 EDT by Dick Vanegas
[2020-03-11] MEDS ORDERED: MAALOX 30 ML SUSP *UDC PO PRN (09:30)
--- NOTE | 2020-03-11 09:32 | HPEPDOC ---
[facility] Medical History & Physical Date of Admission Mar 11, 2020 Date of Service: Mar 11, 2020 Attending Physician: MADAY LOWE MD History and Physical CHIEF COMPLAINT: Shortness of breath HISTORY OF PRESENT ILLNESS: Mr. Aragon is a 69-year-old male with a past medical history of CAD, DM 2, CHF, status post AICD, BPH, recently diagnosed pancreatic cancer with liver metastases approximately 6 months ago. He presents to the ED from home, with acute shortness of breath and mental confusion. She is altered and unable to provide a clear history. Respiratory viral panel negative including for covid-19. The ER, CTA showed no pulmonary embolism, but showed patchy nonspecific bilateral groundglass opacities, worse on the right, as well as an infiltrating pancreatic mass 3.5 x 5 cm along with multiple necrotic liver metastases. On arrival, blood pressure 122/60, respiratory 22, pulse ox 98% on 2 L, temperature 97.2. , CBC 10.2, hemoglobin 12.1, hematocrit 38.3. Neutrophils 70.7. , Sodium 136, potassium 3.9, total bilirubin 1.2, AST 52, ALP 277, GGT 494. Pro-calcitonin ordered and pending. Patient was given 40 mg of Lasix IV for suspected fluid overload. Collateral history taken from the patient's at bedside. She states that the patient became hypoglycemic prior to arrival to the ED on arrival EMS staff provided him with D50. This was likely due to insulin administration in the setting of reduced by mouth intake. She reports progressively worsening altered mental status for the past several months, particularly worse in the past 2 weeks. Patient complaining of hallucinations. He was diagnosed with pancreatic cancer 6 months ago for which he has been followed by [facility]. He in [place], [place]. Patient follows with Dr. Denise for further events, heart failure and CAD. PAST MEDICAL HISTORY: Coronary artery disease, status post CABG 3 Diabetes mellitus type 2 Congestive heart failure, sp AICD Pancreatic cancer BPH PAST SURGICAL HISTORY: CABG 3, last 20 years ago SOCIAL HISTORY: Patient is altered and unable to provide accurate social history. FAMILY HISTORY: To provide family history, no records exist in EMR ALLERGIES: Please see below. REVIEW OF SYSTEMS: The patient is altered, unable to provide accurate review of systems. However, does complain of shortness of breath, difficulty speaking HOME MEDICATIONS: Please see below PHYSICAL EXAMINATION: VITAL SIGNS: please see below General: Confused, moving around in bed HEENT: PERRLA, EOMI, sclerae clear Neck: supple, normal ROM, no JVD Respiratory: Diffuse crackles in lungs bilaterally, worse on the right. No wheeze CVS: RRR, normal S1, S2, no murmurs. 11. Sternotomy scar Abdo: soft, no masses, no hepatosplenomegaly, BS+, no rebound tenderness Extremities: Wrist edema bilaterally, pulses 1+ MSK: no joint deformities, normal ROM Neuro: no focal neuro deficits, moving all 4 extremities, CN2-12 intact. Strength 5/5 in all 4 extremities. No nystagmus. Psych: calm, cooperative, AAO x 1 LABORATORY DATA: See below. IMAGING: CT head wo contrast (03/11/20): FINDINGS: Brain: There is epso-kf-oxckbbuv parenchymal volume loss. White matter changes are demonstrated in the subcortical, centrum semiovale and periventricular white matter consistent with age related small vessel white matter ischemic changes. Cerebral ventricles: The degree of ventricular dilatation is normal for age and/or degree of atrophy present. Bones/joints: Unremarkable. No acute fracture. Paranasal sinuses: Visualized sinuses are unremarkable. No fluid levels. Mastoid air cells: Visualized mastoid air cells are well aerated. Vasculature: Atherosclerotic calcifications are demonstrated in the intracranial carotid arteries bilaterally as well as in the vertebral basilar system. Soft tissues: Unremarkable. IMPRESSION: 1. There is nogi-ne-jlnbucoc parenchymal volume loss. White matter changes are demonstrated in the subcortical, centrum semiovale and periventricular white matter consistent with age related small vessel white matter ischemic changes. 2. The degree of ventricular dilatation is normal for age and/or degree of atrophy present. 3. No acute intracranial findings. CTA Chest (03/11/20): FINDINGS: Tubes, catheters and devices: Left chest pacemaker. Pulmonary arteries: Normal. No pulmonary emboli. Aorta: Atherosclerotic disease of the thoracic aorta. Lungs: Patchy bilateral ground-glass opacities most pronounced in the right lung. Pleural space: Unremarkable. No pneumothorax. No pleural effusion. Heart: Status post median sternotomy and CABG. Cardiomegaly. Lymph nodes: Unremarkable. No enlarged lymph nodes. Liver: There are multiple centrally necrotic liver metastasis. Pancreas: Infiltrating pancreatic body mass inseparable from the celiac trunk. Mass measures at least 3.5 x 5 cm. Kidneys and ureters: Bilateral renal cortical atrophy and scarring. Intraperitoneal space: Small ascites. Bones/joints: Multilevel degenerative disease of the thoracic spine. Soft tissues: Unremarkable. IMPRESSION: No acute pulmonary embolic disease. Patchy nonspecific bilateral ground-glass opacities most pronounced in the right lung. Infiltrating pancreatic body mass inseparable from the celiac trunk. Mass measures at least 3.5 x 5 cm. Multiple centrally necrotic liver metastasis. MICROBIOLOGY: Please see below. ASSESSMENT: 69-year-old male with a past medical history of CAD, DM 2, CHF, status post AICD, BPH, recently diagnosed pancreatic cancer with liver metastases approximately 6 months ago. He presents to the ED from home, with acu te shortness of breath and mental confusion. She is altered and unable to provide a clear history. Respiratory viral panel negative including for covid- 19. The ER, CTA showed no pulmonary embolism, but showed patchy nonspecific bilateral groundglass opacities, worse on the right, as well as an infiltrating pancreatic mass 3.5 x 5 cm along with multiple necrotic liver metastases. PLAN: #SOB: likely due to fluid overload from CHF, with possible superimposed pneumonia. COVID-19 neg by PCR. Reviewed imaging with Dr. Rutherford, CT showing alveolar opacities, possible pneumonia. Mild WBC. Afebrile. Sputum cx, blood cx. Strep ag, legionella ag. Lasix 40 mg IV BID. Vanc. Cefepime. Strict I&O,daily we ights, noted weight had increased despite diuresis and improvement on clinical exam, which does not correlated. Monitor for fevers. Repeat CXR in am. #AMS: Likely multifactorial, suspect encephalopathy. Visual hallucinations several times per week. However, during given duration for the past several months and progressively worsening, suspect possible metastatic disease to brain. MRI unable to obtain given AICD. CT brain negative. Discussed with Dr. Love, neurology consulted place. Patient has been previously followed by Dr. Skelton. EEG. CT head with IV contrast. #CAD: c/w ASA/statin. Follows with Dr. Denise. #CHF: per advanced. s/p AICD. Obtained stat 2D echo. Reviewed with Dr. Cobb. Suspected significantly reduced heart failure, likely below 45%, but possibly as low as 30%. Grade 1 Diastolic dysfunction. IVC 2 cm. Pulmonary artery pressure is normal. No valvular disease. No mitral regurgitation. Diagnostically difficult study. #DM2: resume home insulin. ISS. Hypoglycemia precautions. FBSB AC and HS. #Pancreatic cancer with mets: metastatic disease to liver. Follows with oncology center in [place]. Per , at present not surgical candidate, not a candidate for chemo. GOC. Will contact oncologist on 03/13/20. Dispo: pending clinical improvement. PT/OT. Vital Signs Vital Signs Date Time Temp Pulse Resp B/P (MAP) Pulse Ox O2 Delivery O2 Flow Rate FiO2 03/11/20 08:45 100 36 128/78 (95) 93 Nasal Cannula 4.0 03/11/20 04:46 97.2 Laboratory Data Labs 24H Laboratory Tests 2 03/11/20 04:58: Bedside Glucose (Misc Panel) 171H 03/11/20 05:05: Immature Granulocyte % (Auto) 0.7, Neutrophils (%) (Auto) 70.7H, Lymphocytes (%) (Auto) 11.0L, Monocytes (%) (Auto) 14.3H, Eosinophils (%) (Auto) 2.6, Basophils (%) (Auto) 0.7, Neutrophils # (Auto) 7.2, Lymphocytes # (Auto) 1.1L, Monocytes # (Auto) 1.5H, Eosinophils # (Auto) 0.3, Basophils # (Auto) 0.1, Nucleated Red Blood Cells % (auto) 0.0, VE-Ozo-D-Type Natriuretic Peptide 531H 03/11/20 05:10: POC Glucose (Misc Panel) 214H, POC Sodium (Misc Panel) 135L, POC Potassium (Misc Panel) 4.3, POC Chloride (Misc Panel) 97L, POC Total CO2 (Misc Panel) 26.0, POC Blood Urea Nitrogen (Misc Panel 19, POC Ionized Calcium (Misc Panel) 4.7, POC Creatinine (Misc Panel) 0.8, POC Hematocrit (Misc Panel) 38.0 03/11/20 05:13: POC Troponin I (Misc) 0.01 03/11/20 09:03: POC pH (Misc Panel) 7.445, POC Base Excess (Misc Panel) -5.0L, POC Saturated Percent O2 (Misc) 88L, POC pO2 (Misc Panel) 51.0L, POC pCO2 (Misc Panel) 28.4L, POC HCO3 (Misc Panel) 19.5L, POC Total CO2 (Misc Panel) 20.0L CBC/BMP Laboratory Tests 03/11/20 05:05 Microbiology Microbiology 03/11/20 Respiratory Virus Panel (PCR) ([facility]) - Final, Complete Home Medications Scheduled Allopurinol (Allopurinol) 100 Mg Tab, 100 MG PO QAM Aspirin (Aspirin EC) 81 Mg Tablet.dr, 81 MG PO DAILY Atorvastatin Calcium (Atorvastatin Calcium) 80 Mg Tab, 80 MG PO QHS Carvedilol (Carvedilol) 25 Mg Tab, 37.5 MG PO BID Clopidogrel Bisulfate (Clopidogrel) 75 Mg Tab, 75 MG PO QAM Docusate Sodium (Docusate Sodium) 100 Mg Capsule, 100 MG PO BID Fentanyl (Duragesic) 25 Mcg Patch.td72, 25 MCG TOP Q3RD AFTER THREE DAYS TAKE OFF AND APPLY NEW PATCH TO A DIFFERENT AREA Insulin NPH Hum/Reg Insulin Hm (Humulin 70-30 Vial) 100 Unit/1 Ml Vial, 20 UNITS SC Q12H Isosorbide Mononitrate (Isosorbide Mononitrate ER) 120 Mg Tab, 120 MG PO QAM Lactulose (Lactulose) 10 Gm/15 Ml Solution, 15 ML PO BID Magnesium Oxide (Magnesium Oxide) 400 Mg Tab, 400 MG PO BID Multivitamin (Multivitamins) 1 Each Capsule, 1 CAP PO DAILY Pantoprazole Sodium (Pantoprazole Sodium) 40 Mg Tablet.dr, 40 MG PO DAILY Quetiapine Fumarate (Quetiapine Fumarate) 25 Mg Tablet, 25 MG PO QHS Ramipril (Ramipril) 2.5 Mg Capsule, 2.5 MG PO QHS Spironolactone (Spironolactone) 25 Mg Tab, 12.5 MG PO QAM Tamsulosin HCl (Flomax) 0.4 Mg Capsule, 0.4 MG PO DAILY Torsemide (Torsemide) 10 Mg Tablet, 10 MG PO BID@,17 Scheduled PRN Acetaminophen (Acetaminophen) 325 Mg Tablet, 650 MG PO Q4H PRN for PAIN OR FEVER Hyoscyamine Sulfate (Hyoscyamine Sulfate) 0.125 Mg Tab.subl, 0.125 MG PO Q4HP PRN for TERMINAL SECRETIONS Use sublingually if unable to swallow Lorazepam (Ativan) 0.5 Mg Tablet, 0.5 MG PO Q4HP PRN for ANXIETY/AGITATION Use sublingually if unable to swallow Metoclopramide HCl (Metoclopramide HCl) 10 Mg Tablet, 10 MG PO TID PRN for NAUSEA OR VOMITING Morphine Sulfate (Morphine Sulfate) 100 Mg/5 Ml Solution, 0.25-1 ML PO Q2H PRN for PAIN OR DYSPNEA Use sublingually if unable to swallow Nitroglycerin (Nitrostat) 0.4 Mg Subl, 0.4 MG SL for ANGINA Oxycodone HCl/Acetaminophen (Oxycodon-Acetaminophen 7.5-325) 1 Each Tablet, 1 TAB PO QID PRN for pain Allergies Coded Allergies: No Known Allergies (Verified , 06/23/17) MADAY LOWE MD Mar 11, 2020 09:32
[2020-03-11] MEDS: CEFEPIME HCL 2 GM in D5W MINI-BAG PLUS 50 ML IV SCH ×2 (09:51→17:43)
[2020-03-11] MEDS ORDERED: DEXTROSE 50% 50 ML SYRINGE IV PRN (10:00)
[2020-03-11] MEDS ORDERED: GLUCOSE 4GM CHEW TABLET PO PRN (10:00)
[2020-03-11] MEDS ORDERED: GLUCAGON INJ 1MG VIAL SC PRN (10:00)
[2020-03-11 10:15] VITALS: BP 107/56
[2020-03-11] MEDS ORDERED: LACT10SO3 PO (10:23)
[2020-03-11] MEDS ORDERED: ASPI81TA26 PO (10:23)
[2020-03-11] MEDS ORDERED: PANT40TA29 PO (10:23)
[2020-03-11] MEDS ORDERED: METO10TA2 PO (10:23)
[2020-03-11] MEDS ORDERED: MULTCAP PO (10:23)
[2020-03-11] MEDS ORDERED: RAMI1CAP22 PO (10:23)
[2020-03-11] MEDS ORDERED: SLF 3 ML SYR IV PRN (10:45)
[2020-03-11] MEDS ORDERED: VANCOMYCIN HCL 1,000 MG, VIAL MATE ADAPTER 1 EACH in D5W 250 ML IV ONE (11:00)
[2020-03-11 11:11] LABS: BASO % 0.4 % (0.0-1.0); EOS % 0.3 % (0.0-3.0); HEMATOCRIT 37.3 % (42.0-52.0); HEMOGLOBIN 11.8 g/dl (13.5-17.5); LYMPH # 0.4 10^3/uL (1.5-5.0); LYMPH % 3.8 % (24.0-44.0); MEAN CORPUSCULAR HEMOGLOBIN 27.5 pg (27.0-33.0); MEAN CORPUSCULAR HGB CONC 31.6 g/dl (32.0-36.5); MEAN CORPUSCULAR VOLUME 86.9 fl (80.0-96.0); MONO # 0.9 10^3/uL (0.0-0.8); MONO % 9.5 % (0.0-5.0); NEUTROPHILS # 8.1 10^3/uL (1.5-8.5); NEUTROPHILS % 85.6 % (36.0-66.0); PLATELET COUNT, AUTOMATED 236 10^3/uL (150-450); RED BLOOD COUNT 4.29 10^6/uL (4.30-6.10); WHITE BLOOD COUNT 9.4 10^3/uL (4.0-10.0)
[2020-03-11 11:44] LABS: ALBUMIN 2.9 GM/DL (3.2-5.2); ALT/SGPT 65 U/L (12-78); BILIRUBIN,TOTAL 1.2 MG/DL (0.2-1.0); BLOOD UREA NITROGEN 24 MG/DL (7-18); CALCIUM LEVEL 8.6 MG/DL (8.8-10.2); CARBON DIOXIDE LEVEL 27 MEQ/L (21-32); CHLORIDE LEVEL 102 MEQ/L (98-107); CREATININE FOR GFR 1.15 MG/DL (0.70-1.30); GLOMERULAR FILTRATION RATE > 60.0 (>49); GLUCOSE, FASTING 142 MG/DL (70-100); POTASSIUM SERUM 3.9 MEQ/L (3.5-5.1); SODIUM LEVEL 136 MEQ/L (136-145); TOTAL PROTEIN 5.8 GM/DL (6.4-8.2)
[2020-03-11] MEDS: DOCUSATE SODIUM 100 MG CAP PO SCH ×2 (11:55→20:56)
[2020-03-11 12:00] VITALS: BP 111/69
[2020-03-11] MEDS: HumaLOG INSULIN (NovoLOG) PER UNIT SC SCH ×3 (12:00→20:54)
[2020-03-11] MEDS ORDERED: METOCLOPRAMIDE 10 MG TAB PO PRN (14:15)
[2020-03-11] MEDS ORDERED: NITROGLYCERIN 0.4 MG SUBL TABLET SL PRN (14:15)
[2020-03-11 15:06] VITALS: BP 116/70
[2020-03-11] MEDS: VANCOMYCIN HCL 1,000 MG, VIAL MATE ADAPTER 1 EACH in D5W 250 ML IV SCH ×2 (15:09→21:33)
[2020-03-11] MEDS: ASPIRIN 81 MG ENTERIC TAB PO SCH (15:09)
[2020-03-11] MEDS: SLF 3 ML SYR IV SCH ×2 (15:09→21:33)
[2020-03-11] MEDS: PANTOPRAZOLE 40MG TAB (PROTONIX) PO SCH (15:10)
[2020-03-11] MEDS: HEPARIN SOD (PORCINE) 5000UNITS/ML 1ML VIAL/SYRINGE SC SCH ×2 (15:10→21:33)
[2020-03-11] MEDS: CLOPIDOGREL 75 MG TAB PO SCH (15:10)
[2020-03-11] MEDS: allopurinoL 100 MG TAB PO SCH (15:11)
[2020-03-11] MEDS: TAMSULOSIN 0.4 MG CAP PO SCH (15:11)
[2020-03-11] MEDS: SPIRONOLACTONE 12.5MG PER 1/2 TABLET PO SCH ×2 (15:12→15:23)
[2020-03-11] MEDS: TORSEMIDE 10 MG TABLET PO SCH ×2 (15:12→15:23)
[2020-03-11] MEDS: ISOSORBIDE MON. (IMDUR) 60 MG XR TAB PO SCH ×2 (15:13→15:23)
[2020-03-11 16:00] VITALS: BP 138/65
--- NOTE | 2020-03-11 19:00 | REPVR ---
PROCEDURE INFORMATION: Exam: CT Head Without Contrast Exam date and time: 03/11/2020 6:49 PM Age: 69 years old Clinical indication: Altered mental status/memory loss; Additional info: AMS TECHNIQUE: Imaging protocol: Computed tomography of the head without contrast. Radiation optimization: All CT scans at this facility use at least one of these dose optimization techniques: automated exposure control; mA and/or kV adjustment per patient size (includes targeted exams where dose is matched to clinical indication); or iterative reconstruction. COMPARISON: CT Head W/O FOLL BY WITH CONTR 01/27/2020 8:37 AM FINDINGS: Brain: There is ynbw-xg-kvfctvmr parenchymal volume loss. White matter changes are demonstrated in the subcortical, centrum semiovale and periventricular white matter consistent with age related small vessel white matter ischemic changes. Cerebral ventricles: The degree of ventricular dilatation is normal for age and/or degree of atrophy present. Bones/joints: Unremarkable. No acute fracture. Paranasal sinuses: Visualized sinuses are unremarkable. No fluid levels. Mastoid air cells: Visualized mastoid air cells are well aerated. Vasculature: Atherosclerotic calcifications are demonstrated in the intracranial carotid arteries bilaterally as well as in the vertebral basilar system. Soft tissues: Unremarkable. IMPRESSION: 1. There is epqi-lo-tcrpmhni parenchymal volume loss. White matter changes are demonstrated in the subcortical, centrum semiovale and periventricular white matter consistent with age related small vessel white matter ischemic changes. 2. The degree of ventricular dilatation is normal for age and/or degree of atrophy present. 3. No acute intracranial findings. Electronically signed by: Diaz Seymour On 03/11/2020 18:59:52 PM
[2020-03-11 20:00] VITALS: BP 135/66
[2020-03-11] MEDS ORDERED: FUROSEMIDE 20MG/2ML VIAL (J1940) IV ONE (20:00)
[2020-03-11] MEDS: CARVedilol 12.5 MG TAB PO SCH (20:52)
[2020-03-11] MEDS: MAGNESIUM OXIDE 400 MG TAB (MAG-OX) PO SCH (20:53)
[2020-03-11] MEDS: ATORVASTATIN 20 MG TAB PO SCH (20:53)
[2020-03-11] MEDS: HumuLIN (NovoLIN)70/30 INSULIN INJ PER UNIT SC SCH (21:34)
[2020-03-11] MEDS: ACETAMINOPHEN TAB 650MG DOSE (2X325MG) PO PRN (23:48)
[2020-03-12] VITALS (8 sets, daily range): BP systolic 100–147; BP diastolic 56–87
[2020-03-12] MEDS: CEFEPIME HCL 2 GM in D5W MINI-BAG PLUS 50 ML IV SCH ×3 (02:13→17:08)
[2020-03-12 04:32] LABS: BASO # 0.1 10^3/uL (0.0-0.2); BASO % 0.5 % (0.0-1.0); EOS # 0.1 10^3/uL (0.0-0.5); EOS % 0.7 % (0.0-3.0); HEMATOCRIT 32.2 % (42.0-52.0); HEMOGLOBIN 10.3 g/dl (13.5-17.5); LYMPH # 1.1 10^3/uL (1.5-5.0); MEAN CORPUSCULAR HEMOGLOBIN 27.6 pg (27.0-33.0); MEAN CORPUSCULAR VOLUME 86.3 fl (80.0-96.0); MONO # 1.4 10^3/uL (0.0-0.8); MONO % 13.5 % (0.0-5.0); NEUTROPHILS % 74.7 % (36.0-66.0); PLATELET COUNT, AUTOMATED 186 10^3/uL (150-450); RED BLOOD COUNT 3.73 10^6/uL (4.30-6.10); WHITE BLOOD COUNT 10.6 10^3/uL (4.0-10.0)
[2020-03-12 04:59] LABS: ALBUMIN 2.5 GM/DL (3.2-5.2); ALT/SGPT 74 U/L (12-78); BILIRUBIN,TOTAL 0.9 MG/DL (0.2-1.0); BLOOD UREA NITROGEN 22 MG/DL (7-18); CALCIUM LEVEL 8.1 MG/DL (8.8-10.2); CARBON DIOXIDE LEVEL 30 MEQ/L (21-32); CHLORIDE LEVEL 101 MEQ/L (98-107); CREATININE FOR GFR 0.89 MG/DL (0.70-1.30); GLOMERULAR FILTRATION RATE > 60.0 (>49); GLUCOSE, FASTING 94 MG/DL (70-100); MAGNESIUM LEVEL 2.2 MG/DL (1.8-2.4); POTASSIUM SERUM 3.9 MEQ/L (3.5-5.1); SODIUM LEVEL 138 MEQ/L (136-145); TOTAL PROTEIN 5.3 GM/DL (6.4-8.2)
[2020-03-12] MEDS: HEPARIN SOD (PORCINE) 5000UNITS/ML 1ML VIAL/SYRINGE SC SCH ×3 (05:35→21:37)
[2020-03-12] MEDS: SLF 3 ML SYR IV SCH ×3 (05:35→21:28)
--- NOTE | 2020-03-12 05:40 | ECGEPIP ---
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
[2020-03-12] MEDS: VANCOMYCIN HCL 1,000 MG, VIAL MATE ADAPTER 1 EACH in D5W 250 ML IV SCH (05:53)
[2020-03-12] MEDS: HumaLOG INSULIN (NovoLOG) PER UNIT SC SCH ×4 (07:30→21:00)
--- NOTE | 2020-03-12 08:34 | REP ---
INDICATION: TACHYPNEA COMPARISON: 04/10/2019 FINDINGS: The mediastinum and cardiac silhouette are stable with evidence for prior sternotomy, pacemaker, and CABG. The cardiac silhouette is normal. The lung delcid are clear without acute consolidation, effusion, or pneumothorax. Skeletal structures are intact. IMPRESSION: No acute cardiopulmonary process appreciated. <Electronically signed by Ronald Tsai > 03/12/20 [id number]
[2020-03-12] MEDS: DOCUSATE SODIUM 100 MG CAP PO SCH ×2 (09:00→21:00)
--- NOTE | 2020-03-12 09:27 | REP ---
INDICATION: transaminitis COMPARISON: None. TECHNIQUE: Real time lara scale ultrasound examination using curved array transducer. FINDINGS: Examination is limited by body habitus and associated technical factors. Liver demonstrates coarsened echotexture without focal hepatic lesion identified. The pancreas is incompletely evaluated due to interposed bowel gas but visualized portions appear grossly normal. Gallbladder is unremarkable and without obvious wall thickening or gallstones. The common bile duct measures 3.7 mm diameter. Right kidney is normal in reniform shape without hydronephrosis and measures 11.5 x 4.9 x 4.7 cm. No ascites in the visualized right upper quadrant. IMPRESSION: Limited examination. Coarsened hepatic echotexture without focal hepatic lesion identified. <Electronically signed by Ronald Tsai > 03/12/20 [id number]
[2020-03-12] MEDS: FUROSEMIDE 40MG/4ML VIAL (J1940) IV SCH ×2 (09:48→18:14)
[2020-03-12] MEDS: ASPIRIN 81 MG ENTERIC TAB PO SCH (09:48)
[2020-03-12] MEDS: CLOPIDOGREL 75 MG TAB PO SCH (09:48)
[2020-03-12] MEDS: PANTOPRAZOLE 40MG TAB (PROTONIX) PO SCH (09:48)
[2020-03-12] MEDS: ISOSORBIDE MON. (IMDUR) 60 MG XR TAB PO SCH (09:49)
[2020-03-12] MEDS: MAGNESIUM OXIDE 400 MG TAB (MAG-OX) PO SCH ×2 (09:49→21:37)
[2020-03-12] MEDS: TAMSULOSIN 0.4 MG CAP PO SCH (09:50)
[2020-03-12] MEDS: CARVedilol 12.5 MG TAB PO SCH ×2 (09:50→21:36)
[2020-03-12] MEDS: allopurinoL 100 MG TAB PO SCH (09:50)
[2020-03-12] MEDS: SPIRONOLACTONE 12.5MG PER 1/2 TABLET PO SCH (09:50)
[2020-03-12] MEDS: HumuLIN (NovoLIN)70/30 INSULIN INJ PER UNIT SQ SCH (10:04)
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
[2020-03-12] MEDS: ACETAMINOPHEN TAB 650MG DOSE (2X325MG) PO PRN ×2 (12:07→17:10)
[2020-03-12] MEDS ORDERED: ISOVUE-370 76% 100ML VIAL As Ordered ONE (12:24)
--- NOTE | 2020-03-12 13:03 | REPVR ---
PROCEDURE INFORMATION: Exam: CT Head With Contrast Exam date and time: 03/12/2020 12:43 PM Age: 69 years old Clinical indication: Altered mental status/memory loss; Additional info: AMS, discussed with neurology, R/O metastases TECHNIQUE: Imaging protocol: Computed tomography of the head with intravenous contrast. Radiation optimization: All CT scans at this facility use at least one of these dose optimization techniques: automated exposure control; mA and/or kV adjustment per patient size (includes targeted exams where dose is matched to clinical indication); or iterative reconstruction. Contrast material: ISOVUE 370; Contrast volume: 75 ml; Contrast route: INTRAVENOUS (IV); COMPARISON: CT Head without contrast 03/11/2020 6:40 PM FINDINGS: Brain: The brain demonstrates diffuse volume loss. There is white matter hypodensity most consistent with chronic small vessel ischemic change. Cerebral ventricles: The ventricles and CSF spaces are proportionately enlarged. Bones/joints: No acute fracture. Paranasal sinuses: There is some mucoperiosteal reaction in the right maxillary sinus. No fluid levels. Mastoid air cells: Visualized mastoid air cells are well aerated. Orbits: There are postoperative changes from prior cataract surgery. Soft tissues: Unremarkable. IMPRESSION: There is no abnormal enhancement. Electronically signed by: Eliazar Zaragoza On 03/12/2020 13:03:15 PM
[2020-03-12] MEDS ORDERED: ONDANSETRON 4 MG TAB PO PRN (20:00)
[2020-03-12] MEDS: HumuLIN (NovoLIN)70/30 INSULIN INJ PER UNIT SC SCH (21:00)
[2020-03-12] MEDS: ATORVASTATIN 20 MG TAB PO SCH (21:36)
[2020-03-12] MEDS: QUEtiapine FUMARATE 25 MG TAB PO SCH (21:37)
[2020-03-13] VITALS: BP 131/91
[2020-03-13 00:37] LABS: BASO # 0.1 10^3/uL (0.0-0.2); BASO % 0.5 % (0.0-1.0); EOS # 0.2 10^3/uL (0.0-0.5); EOS % 1.6 % (0.0-3.0); HEMATOCRIT 31.3 % (42.0-52.0); HEMOGLOBIN 10.1 g/dl (13.5-17.5); LYMPH # 1.2 10^3/uL (1.5-5.0); LYMPH % 11.2 % (24.0-44.0); MEAN CORPUSCULAR HEMOGLOBIN 27.6 pg (27.0-33.0); MEAN CORPUSCULAR HGB CONC 32.3 g/dl (32.0-36.5); MEAN CORPUSCULAR VOLUME 85.5 fl (80.0-96.0); MONO # 1.4 10^3/uL (0.0-0.8); MONO % 13.1 % (0.0-5.0); NEUTROPHILS # 7.6 10^3/uL (1.5-8.5); NEUTROPHILS % 73.1 % (36.0-66.0); PLATELET COUNT, AUTOMATED 199 10^3/uL (150-450); RED BLOOD COUNT 3.66 10^6/uL (4.30-6.10); WHITE BLOOD COUNT 10.4 10^3/uL (4.0-10.0)
[2020-03-13 01:20] LABS: ALBUMIN 2.5 GM/DL (3.2-5.2); ALT/SGPT 80 U/L (12-78); BILIRUBIN,TOTAL 0.9 MG/DL (0.2-1.0); BLOOD UREA NITROGEN 26 MG/DL (7-18); CALCIUM LEVEL 8.3 MG/DL (8.8-10.2); CARBON DIOXIDE LEVEL 25 MEQ/L (21-32); CHLORIDE LEVEL 102 MEQ/L (98-107); CPK CREATINE PHOSPHOKINASE 1308 U/L (39-308); CREATININE FOR GFR 0.98 MG/DL (0.70-1.30); GLOMERULAR FILTRATION RATE > 60.0 (>49); GLUCOSE, FASTING 133 MG/DL (70-100); MB/CK RELATIVE INDEX 0.31 (< OR =4); NT-PRO BNP 1062 PG/ML (<125); POTASSIUM SERUM 3.7 MEQ/L (3.5-5.1); SODIUM LEVEL 134 MEQ/L (136-145); TROPONIN I 0.04 NG/ML (< 0.10)
[2020-03-13] MEDS: CEFEPIME HCL 2 GM in D5W MINI-BAG PLUS 50 ML IV SCH ×3 (01:36→17:29)
[2020-03-13 04:00] VITALS: BP 130/69
[2020-03-13 05:18] LABS: BASO % 0.4 % (0.0-1.0); EOS # 0.2 10^3/uL (0.0-0.5); EOS % 1.8 % (0.0-3.0); HEMATOCRIT 32.1 % (42.0-52.0); HEMOGLOBIN 10.1 g/dl (13.5-17.5); LYMPH # 0.9 10^3/uL (1.5-5.0); LYMPH % 10.1 % (24.0-44.0); MEAN CORPUSCULAR HGB CONC 31.5 g/dl (32.0-36.5); MEAN CORPUSCULAR VOLUME 85.8 fl (80.0-96.0); MONO # 1.2 10^3/uL (0.0-0.8); MONO % 13.2 % (0.0-5.0); NEUTROPHILS # 6.7 10^3/uL (1.5-8.5); NEUTROPHILS % 73.8 % (36.0-66.0); PLATELET COUNT, AUTOMATED 204 10^3/uL (150-450); RED BLOOD COUNT 3.74 10^6/uL (4.30-6.10); WHITE BLOOD COUNT 9.1 10^3/uL (4.0-10.0)
[2020-03-13 05:39] LABS: ALBUMIN 2.4 GM/DL (3.2-5.2); ALT/SGPT 81 U/L (12-78); BILIRUBIN,TOTAL 0.8 MG/DL (0.2-1.0); BLOOD UREA NITROGEN 24 MG/DL (7-18); CARBON DIOXIDE LEVEL 26 MEQ/L (21-32); CHLORIDE LEVEL 103 MEQ/L (98-107); CREATININE FOR GFR 0.93 MG/DL (0.70-1.30); GLOMERULAR FILTRATION RATE > 60.0 (>49); GLUCOSE, FASTING 174 MG/DL (70-100); MAGNESIUM LEVEL 2.2 MG/DL (1.8-2.4); SODIUM LEVEL 137 MEQ/L (136-145); TOTAL PROTEIN 5.4 GM/DL (6.4-8.2)
[2020-03-13] MEDS: SLF 3 ML SYR IV SCH ×3 (06:10→21:37)
[2020-03-13] MEDS: HEPARIN SOD (PORCINE) 5000UNITS/ML 1ML VIAL/SYRINGE SC SCH ×3 (06:18→21:31)
[2020-03-13] MEDS: HumaLOG INSULIN (NovoLOG) PER UNIT SC SCH ×4 (07:30→21:00)
[2020-03-13 07:41] VITALS: BP 123/57
[2020-03-13] MEDS: HumuLIN (NovoLIN)70/30 INSULIN INJ PER UNIT SQ SCH (08:00)
[2020-03-13] MEDS: MAGNESIUM OXIDE 400 MG TAB (MAG-OX) PO SCH ×2 (09:06→21:30)
[2020-03-13] MEDS: ASPIRIN 81 MG ENTERIC TAB PO SCH (09:06)
[2020-03-13] MEDS: SPIRONOLACTONE 12.5MG PER 1/2 TABLET PO SCH (09:06)
[2020-03-13] MEDS: ISOSORBIDE MON. (IMDUR) 60 MG XR TAB PO SCH (09:07)
[2020-03-13] MEDS: DOCUSATE SODIUM 100 MG CAP PO SCH ×2 (09:07→21:29)
[2020-03-13] MEDS: CLOPIDOGREL 75 MG TAB PO SCH (09:07)
[2020-03-13] MEDS: allopurinoL 100 MG TAB PO SCH (09:07)
[2020-03-13] MEDS: TAMSULOSIN 0.4 MG CAP PO SCH (09:08)
[2020-03-13] MEDS: CARVedilol 12.5 MG TAB PO SCH ×2 (09:08→21:30)
[2020-03-13] MEDS: PANTOPRAZOLE 40MG TAB (PROTONIX) PO SCH (09:08)
[2020-03-13] MEDS: FUROSEMIDE 40MG/4ML VIAL (J1940) IV SCH (09:09)
--- NOTE | 2020-03-13 10:19 | CR ---
DATE OF CONSULTATION: 03/12/2020 REFERRING PHYSICIAN: Lj Oropeza MD REASON FOR CONSULTATION: Hallucinations and altered mental status. 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 Patient also has history of coronary artery disease, diabetes, hypertension, congestive heart failure status post automatic implantable cardioverter defibrillator (AICD) placement. According to patients who is present in the room, patient has body jerks at night sometimes. He has imbalance and has fallen and has been using a walker for the last 6 months. He started having visual hallucinations over the last 3 weeks. They can happen several times a day. He realizes them later that they were not real. He has seen black things hanging from the ceiling, different persons and shadows in the room or window. Patient has difficulty sleeping at night. He is restless and confused, doing things at night. He denies any headaches, neck, or back pain. He has pain in his abdomen related to his pancreatic cancer. Patients states that he has not been a candidate for chemotherapy or surgery. DIAGNOSTIC STUDIES: CT scan of head with and without contrast showed mild to moderate cerebral atrophy with small vessel ischemic disease of brain. Hemoglobin was 10.3, WBC 10.6, AST was 118 and ALT 78 with alkaline phosphatase 237, TSH 1.2. PAST MEDICAL HISTORY: Pancreatic cancer with liver metastasis, coronary artery disease status post coronary artery bypass graft surgery (CABG), type 2 diabetes, congestive heart failure status post AICD placement, prostate enlargement. SOCIAL HISTORY: He denies smoking, alcohol, or illicit drugs. FAMILY HISTORY: Unremarkable and noncontributory. REVIEW OF SYSTEMS: All systems were reviewed with patient and his and were found to be noncontributory except as mentioned in history of present illness. HOME MEDICATIONS: - aspirin 81 mg by mouth daily - allopurinol 100 mg by mouth daily - Lipitor 80 mg by mouth daily - carvedilol 37.5 mg by mouth twice a day - Plavix 75 mg by mouth daily - Fentanyl 45 mcg every 3 days - insulin Humulin 68 units in the morning and 48 units at night - isosorbide mononitrate 120 mg by mouth daily - magnesium - lactulose - multivitamin - Protonix 40 mg by mouth daily - ramipril 2.5 mg by mouth daily - spironolactone 12.5 mg by mouth daily - Flomax 0.4 mg by mouth daily - torsemide 10 mg by mouth daily - Percocet as needed - nitroglycerin as needed - Reglan 10 mg by mouth three times a day as needed ALLERGIES: None. PHYSICAL EXAMINATION: Patient is afebrile, respiratory rate 14, pulse 100, blood pressure 120/78, 93% saturation on four liters nasal cannula, and temperature 97.2. Heart: Regular rate and rhythm. Lungs: Clear to auscultation. Abdomen: Soft, nontender, nondistended. No pedal edema. No musculoskeletal abnormalities. No rash. No signs of meningeal irritation. Patient is awake, alert, oriented to month, name of president, city and state. He was unable to tell me date, year, name of place. He thought it was a yarsanism. Normal speech, comprehension, and repetition. Extraocular muscles are intact. No facial weakness. Tongue and uvula are midline. 5/5 strength in all four extremities. Deep tendon reflexes are 2+ throughout. Normal sensation. Gait is unsteady. No nystagmus. No dysmetria. Normal rapid finger movements. No rigidity, spasticity, nystagmus, tremor on either side. ASSESSMENT: 1. Visual hallucinations and possible delirium. 2. There is concern for Lewy body dementia. 3. Pancreatic cancer with liver metastasis. 4. Congestive heart failure status post automatic implantable cardioverter defibrillator (AICD) placement. 5. Insomnia. 6. Unsteady gait and myoclonic jerks at night. PLAN: 1. Trial of Seroquel 25 mg by mouth nightly and slowly increase it. 2. His overall prognosis is guarded due to his pancreatic cancer. 3. Follow with us in 1-2 weeks after hospital discharge TANG
[2020-03-13 11:44] LABS: HEPATITIS B SURFACE ANTIGEN NEGATIVE (NEGATIVE)
[2020-03-13 11:55] VITALS: BP 128/58
[2020-03-13 12:12] LABS: HEPATITIS C VIRUS ABY INDEX 0.1 INDEX (<0.8)
[2020-03-13 12:13] LABS: HEPATITIS B CORE ANTIBODY IGM NEGATIVE (NEGATIVE)
[2020-03-13 12:14] LABS: HEPATITIS A ANTIBODY IGM NEGATIVE (NEGATIVE)
--- NOTE | 2020-03-13 13:49 | ECHO ---
DATE OF PROCEDURE: 03/11/2020 Age: 69 Gender: Male Height: 175 cm Weight: 113 kg REFERRING PHYSICIAN: Lj Oropeza MD INDICATION: Congestive heart failure, coronary artery disease. MEASUREMENTS: IVS 1.1 cm LV 4.8 cm LVPW 1.0 cm LA 4.0 cm Aorta 3.6 cm RV 3.6 cm IVC 2.0 cm DOPPLER MEASUREMENT Mitral E wave velocity 65 cm/s Mitral A wave 81 cm/s E prime septal 5.4 cm/s E prime lateral 6.7 cm/s FINDINGS: This study was of overall poor technical quality with difficult visualization. Underlying sinus rhythm with wide QRS complex. Left ventricle is normal size. There is definite septal wall motion abnormality. Unfortunately apex anterior and lateral hamilton were very poorly visualized. There is at least mildly reduced left ventricular systolic function, but potentially can be even worse than that. I cannot estimate ejection fraction. Right ventricle was poorly seen. Left atrium is at least mildly enlarged. Right atrium was poorly visualized. There is an echo artifact in the right-sided chambers consistent implantable cardioverter defibrillator (ICD) or pacemaker lead. Aortic valve is sclerotic and was poorly visualized, but mobility seems to be relatively preserved based on limited views. There are also degenerative abnormalities of the mitral valve with mitral annular calcifications and thickening of mitral leaflets, but mobility seems reasonably well preserved. Tricuspid valve appears normal. Pulmonic valve was not well seen. No pericardial effusion was present. Inferior vena cava was poorly visualized, but appears at least borderline dilated. Aortic root is normal. Aortic arch and abdominal aorta were not seen. Doppler interrogation of the aortic valve reveals no insufficiency and trivial stenosis with mean gradient 9 mmHg. Mitral valve is functionally competent without significant stenosis or insufficiency. There is trace tricuspid insufficiency. Calculated pulmonary artery pressure is in the low 30s corresponding to mild pulmonary hypertension based on fair quality TR jet. Mitral inflow pattern on tissue Doppler imaging of the mitral annulus revealed grade 1 diastolic dysfunction. CONCLUSIONS: 1. Study is of poor technical quality with very limited visualization. Underlying sinus rhythm with wide QRS complex. 2. Normal left ventricular (LV) size with at minimum septal wall motion abnormality. [place], most of the anterior and lateral hamilton were not well seen. At least mildly reduced left ventricular systolic function and potentially even much more severe left ventricular (LV) dysfunction. Grade 1 diastolic dysfunction. 3. Aortic sclerosis with minimal stenosis and no insufficiency. 4. At least borderline elevated central venous pressure. 5. At least mild pulmonary hypertension. COMMENTS: Unfortunately, I am unable to reliably estimate left ventricular (LV) systolic function because of very poor quality of images. TANG
[2020-03-13 15:43] VITALS: BP 132/65
--- NOTE | 2020-03-13 16:47 | IPNPDOC ---
Date Seen The patient was seen on 03/13/20. Progress Note SUBJECTIVE: patient seen and examined. Vitals remain stable. No fevers. States his shortness of breath much improved. No CP, no n/v/d. OBJECTIVE PHYSICAL EXAMINATION: VITAL SIGNS: please see below General: Confused, moving around in bed HEENT: PERRLA, EOMI, sclerae clear Neck: supple, normal ROM, no JVD Respiratory: crackes in bilateral lung delcid much improved. No acutely tachypneic. Good inspiratory effort. CVS: RRR, normal S1, S2, no murmurs. 11. Sternotomy scar Abdo: soft, no masses, no hepatosplenomegaly, BS+, no rebound tenderness Extremities: Wrist edema bilaterally, pulses 1+ MSK: no joint deformities, normal ROM Neuro: no focal neuro deficits, moving all 4 extremities, CN2-12 intact. Strength 5/5 in all 4 extremities. No nystagmus. Psych: calm, cooperative, AAO x 1 LABORATORY DATA, IMAGING STUDIES, MICROBIOLOGY: Please see below. DVT prophylaxis ordered?: Y ASSESSMENT: 69-year-old male with a past medical history of CAD, DM 2, CHF, status post AICD, BPH, recently diagnosed pancreatic cancer with liver metastases approximately 6 months ago. He presents to the ED from home, with acute shortness of breath and mental confusion. She is altered and unable to provide a clear history. Respiratory viral panel negative including for covid- 19. The ER, CTA showed no pulmonary embolism, but showed patchy nonspecific bilateral groundglass opacities, worse on the right, as well as an infiltrating pancreatic mass 3.5 x 5 cm along with multiple necrotic liver metastases. . PLAN: #SOB: likely due to fluid overload from CHF, with possible superimposed pneumonia. COVID-19 neg by PCR. Reviewed imaging with Dr. Rutherford, CT showing alveolar opacities, possible pneumonia. RVP negative. Dyspnea significantly improved with diuresis. #community-acquired pneumonia: sputum culture+ ecoli. MRSA negative. Stop vanco. C/w cefepime. Follow up final blood cultures. Legionella ag neg. Strep ag neg #AMS: Likely multifactorial, metabolicencephalopathy. However, during given dur ation for the past several months and progressively worsening, suspect possible metastatic disease to brain. MRI unable to obtain given AICD. CT brain negative. Consult neurology. EEG ordered. CT brain w/ contrast shows no metastatic disease. #visual hallucination: possible delirium. Neurology consulted, follows with Dr. Skelton. trial seroquel 25 mg qhs. #CAD: c/w ASA/statin. Follows with Dr. Denise. #CHF: per advanced. s/p AICD. Obtained stat 2D echo. Reviewed with Dr. Cobb. Suspected significantly reduced heart failure, likely below 45%, but possibly as low as 30%. Grade 1 Diastolic dysfunction. IVC 2 cm. Pulmonary artery pressure is normal. No valvular disease. No mitral regurgitation. Diagnostically difficult study. #DM2: resume home insulin. ISS. Hypoglycemia precautions. FBSB AC and HS. #Pancreatic cancer with mets: metastatic disease to liver. Follows with oncology center in [place], Dr. Mishra. Not a candidate for immunotherapy at this time. Hospice referral may be appropriate. Dispo: pending PT/OT recommendations. VS, I&O, 24H, Fishbone Vital Signs/I&O Vital Signs Date Time Temp Pulse Resp B/P (MAP) Pulse Ox O2 Delivery O2 Flow Rate FiO2 03/13/20 16:00 2.0 03/13/20 15:43 98.8 77 18 132/65 (87) 98 Nasal Cannula I&O- Last 24 Hours up to 6 AM 03/13/20 06:00 Intake Total 1565 ml Output Total 1475 ml Balance 90 ml Laboratory Data 24H LABS Laboratory Tests 2 03/12/20 21:09: Bedside Glucose (Misc Panel) 156H 03/13/20 00:32: Immature Granulocyte % (Auto) 0.5, Neutrophils (%) (Auto) 73.1H, Lymphocytes (%) (Auto) 11.2L, Monocytes (%) (Auto) 13.1H, Eosinophils (%) (Auto) 1.6, Basophils (%) (Auto) 0.5, Neutrophils # (Auto) 7.6, Lymphocytes # (Auto) 1.2L, Monocytes # (Auto) 1.4H, Eosinophils # (Auto) 0.2, Basophils # (Auto) 0.1, Nucleated Red Blood Cells % (auto) 0.0, Anion Gap 7L, Glomerular Filtration Rate > 60.0, Calcium Level 8.3L, Total Bilirubin 0.9, Aspartate Amino Transf (AST/SGOT) 124H, Alanine Aminotransferase (ALT/SGPT) 80H, Alkaline Phosphatase 252H, Total Creatine Kinase 1308H, Creatine Kinase MB 4.0H, Creatine Kinase MB Relative Index 0.31, Troponin I 0.04, ZO-[id number]-Type Natriuretic Peptide 1062H, Total Protein 6.0L, Albumin 2.5L, Albumin/Globulin Ratio 0.7 03/13/20 04:50: Immature Granulocyte % (Auto) 0.7, Neutrophils (%) (Auto) 73.8H, Lymphocytes (%) (Auto) 10.1L, Monocytes (%) (Auto) 13.2H, Eosinophils (%) (Auto) 1.8, Basophils (%) (Auto) 0.4, Neutrophils # (Auto) 6.7, Lymphocytes # (Auto) 0.9L, Monocytes # (Auto) 1.2H, Eosinophils # (Auto) 0.2, Basophils # (Auto) 0.0, Nucleated Red Blood Cells % (auto) 0.0, Anion Gap 8, Glomerular Filtration Rate > 60.0, Calcium Level 8.0L, Total Bilirubin 0.8, Aspartate Amino Transf (AST/SGOT) 120H, Alanine Aminotransferase (ALT/SGPT) 81H, Alkaline Phosphatase 258H, Total Protein 5.4L, Albumin 2.4L, Albumin/Globulin Ratio 0.8, Magnesium Level 2.2 03/13/20 05:06: Bedside Glucose (Misc Panel) 171H 03/13/20 11:37: Bedside Glucose (Misc Panel) 225H CBC/BMP Laboratory Tests 03/13/20 00:32 03/13/20 04:50 Microbiology Microbiology 03/11/20 Gram Stain - Final, Complete 03/11/20 Sputum Culture - Final, Complete Escherichia Coli 03/11/20 Blood Culture - Preliminary, Resulted No Growth after 48 hours. All Specime... 03/11/20 Respiratory Virus Panel (PCR) (PANKAJ) - Final, Complete MADAY LOWE MD Mar 13, 2020 16:47
[2020-03-13] MEDS: TORSEMIDE 10 MG TABLET PO SCH (17:29)
--- NOTE | 2020-03-13 19:10 | ECGEPIP ---
[facility] Test Date: 2020-03-13 Pat Name: SHAHRIAR MARIE Department: Room: T8802-28 Gender: Male Sharepoint Manager: JOSE ENRIQUE : 1950 Requested By: Eliz Romano [facility] [place] Order Number: [id number] Reading MD: Sacha Denise Measurements Intervals [place] Rate: 82 P: PA: 0 QRS: -5 QRSD: 113 T: 34 QT: 380 QTc: 445 Interpretive Statements Sinus arrhythmia. Nonspecific T wave abnormalities. Subtle rhythm change from earlier the same day Electronically Signed on 03-13-2020 19:09:40 EDT by Sacha Denise
[2020-03-13 20:00] VITALS: BP 133/60
[2020-03-13] MEDS: ATORVASTATIN 20 MG TAB PO SCH (21:30)
[2020-03-13] MEDS: QUEtiapine FUMARATE 25 MG TAB PO SCH (21:30)
[2020-03-13] MEDS: HumuLIN (NovoLIN)70/30 INSULIN INJ PER UNIT SC SCH (21:34)
[2020-03-13] MEDS ORDERED: HALOPERIDOL 5MG/ML VIAL (J1630 PER 1) As Ordered ONE (22:12)
[2020-03-13] MEDS ORDERED: HALOPERIDOL 5MG/ML VIAL (J1630 PER 1) IM ONE (22:15)
[2020-03-14] MEDS ORDERED: HALOPERIDOL 5MG/ML VIAL (J1630 PER 1) IM ONE (00:30)
[2020-03-14] MEDS: CEFEPIME HCL 2 GM in D5W MINI-BAG PLUS 50 ML IV SCH ×3 (03:00→18:03)
[2020-03-14 04:00] VITALS: BP 116/83
[2020-03-14 05:16] LABS: BASO # 0.1 10^3/uL (0.0-0.2); BASO % 0.5 % (0.0-1.0); EOS # 0.2 10^3/uL (0.0-0.5); EOS % 2.3 % (0.0-3.0); HEMATOCRIT 35.8 % (42.0-52.0); HEMOGLOBIN 11.3 g/dl (13.5-17.5); LYMPH # 1.2 10^3/uL (1.5-5.0); LYMPH % 12.6 % (24.0-44.0); MEAN CORPUSCULAR HEMOGLOBIN 27.4 pg (27.0-33.0); MEAN CORPUSCULAR HGB CONC 31.6 g/dl (32.0-36.5); MEAN CORPUSCULAR VOLUME 86.7 fl (80.0-96.0); MONO # 1.2 10^3/uL (0.0-0.8); NEUTROPHILS # 6.7 10^3/uL (1.5-8.5); PLATELET COUNT, AUTOMATED 208 10^3/uL (150-450); RED BLOOD COUNT 4.13 10^6/uL (4.30-6.10); WHITE BLOOD COUNT 9.5 10^3/uL (4.0-10.0)
[2020-03-14] MEDS: HEPARIN SOD (PORCINE) 5000UNITS/ML 1ML VIAL/SYRINGE SC SCH ×3 (05:29→21:06)
[2020-03-14] MEDS: SLF 3 ML SYR IV SCH ×3 (05:30→21:07)
[2020-03-14 05:32] LABS: ALBUMIN 2.4 GM/DL (3.2-5.2); ALT/SGPT 84 U/L (12-78); BILIRUBIN,TOTAL 0.8 MG/DL (0.2-1.0); BLOOD UREA NITROGEN 19 MG/DL (7-18); CALCIUM LEVEL 8.4 MG/DL (8.8-10.2); CARBON DIOXIDE LEVEL 28 MEQ/L (21-32); CHLORIDE LEVEL 104 MEQ/L (98-107); CREATININE FOR GFR 0.85 MG/DL (0.70-1.30); GLOMERULAR FILTRATION RATE > 60.0 (>49); GLUCOSE, FASTING 65 MG/DL (70-100); MAGNESIUM LEVEL 2.3 MG/DL (1.8-2.4); POTASSIUM SERUM 3.8 MEQ/L (3.5-5.1); SODIUM LEVEL 140 MEQ/L (136-145); TOTAL PROTEIN 5.7 GM/DL (6.4-8.2)
[2020-03-14] MEDS: HumaLOG INSULIN (NovoLOG) PER UNIT SC SCH ×4 (07:30→20:15)
[2020-03-14 07:50] VITALS: BP 134/81
[2020-03-14] MEDS: HumuLIN (NovoLIN)70/30 INSULIN INJ PER UNIT SQ SCH (08:00)
[2020-03-14] MEDS: TAMSULOSIN 0.4 MG CAP PO SCH (08:46)
[2020-03-14] MEDS: SPIRONOLACTONE 12.5MG PER 1/2 TABLET PO SCH (08:46)
[2020-03-14] MEDS: ASPIRIN 81 MG ENTERIC TAB PO SCH (08:46)
[2020-03-14] MEDS: MAGNESIUM OXIDE 400 MG TAB (MAG-OX) PO SCH ×2 (08:46→21:05)
[2020-03-14] MEDS: DOCUSATE SODIUM 100 MG CAP PO SCH ×2 (08:47→21:05)
[2020-03-14] MEDS: CLOPIDOGREL 75 MG TAB PO SCH (08:47)
[2020-03-14] MEDS: PANTOPRAZOLE 40MG TAB (PROTONIX) PO SCH (08:47)
[2020-03-14] MEDS: CARVedilol 12.5 MG TAB PO SCH ×2 (08:47→21:05)
[2020-03-14] MEDS: ISOSORBIDE MON. (IMDUR) 60 MG XR TAB PO SCH (08:48)
[2020-03-14] MEDS: TORSEMIDE 10 MG TABLET PO SCH ×2 (08:48→17:00)
[2020-03-14] MEDS: allopurinoL 100 MG TAB PO SCH (08:48)
--- NOTE | 2020-03-14 12:23 | EEG ---
DATE: 03/13/2020 DIAGNOSIS: Altered mental status. EEG# [id number] REFERRING PHYSICIAN: Lj Oroepza MD HISTORY: Patient is a 69-year-old man with history of pancreatic cancer with liver metastasis and congestive heart failure, who was admitted at [facility] due to altered mental status, confusion, and visual hallucinations. He is currently taking aspirin, atorvastatin, carvedilol, Plavix, Protonix, Flomax, Spironolactone, quetiapine, etc. TECHNICAL DESCRIPTION: This baseline EEG was recorded by 21-scalp, ear, and two EKG electrodes and was reviewed in bipolar and referential montages following reformatting in 10-20 international electrode placement system. INTERPRETATION: Patient was noted to be in awake and drowsy states during this EEG. Resting and awake background rhythm consisted of 6 Hz theta activity measuring 15-40 microvolts in amplitude, which was symmetric bilaterally. No sleep was achieved. Patient remained confused and had hallucinations during EEG. Hyperventilation could not be performed. Photic stimulation remained unremarkable. EKG revealed sinus rhythm with PACs. No focal, lateralizing, or epileptiform abnormalities were seen. No relevant clinical activity was noted. CONCLUSION: This EEG in awake, drowsy states is abnormal due to presence of mild generalized slowing and disorganization of background consistent with nonspecific diffuse cerebellar dysfunction such as seen in encephalopathy, due to multiple potential causes including toxic, metabolic, infectious, medication related causes. No epileptiform abnormalities were seen. Clinical correlation is recommended. MTDD
[2020-03-14 16:00] VITALS: BP 128/72
--- NOTE | 2020-03-14 18:53 | IPNPDOC ---
Text Note Date of Service The patient was seen on 03/14/20. NOTE Subjective: Patient seen and examined today at bedside. Son at bedside. Sitter with him due to visual hallucinations. Tells me he is no longer short of breath. Denies any chest pain. No overnight events. Objective: Constitutional: Awake and alert, in no apparent distress ENT: Sclera are clear. Mucosa is moist. Respiratory: Lungs mild crackles around lung base bilaterally. No respiratory distress. No use of accessory muscles. Cardiovascular: RRR S1 and S2 are normal, no murmur. Sternotomy midline scar Gastrointestinal: Abdomen is soft, non distended, diffusely tender without rebound tenderness, BS present. Musculoskeletal: No lower extremity edema. Mild wrist edema. Neurologic: No focal neurological deficit. Mental Status: A&O x3, normal affect Skin: Warm, dry Assessment/plan: 69-year-old male with a past medical history of CAD, DM 2, CHF, status post AICD, BPH, recently diagnosed pancreatic cancer with liver metastases approximately 6 months ago. He presents to the ED from home, with acute shortness of breath and mental confusion. She is altered and unable to provide a clear history. Respiratory viral panel negative including for covid-19. The ER, CTA showed no pulmonary embolism, but showed patchy nonspecific bilateral groundglass opacities, worse on the right, as well as an infiltrating pancreatic mass 3.5 x 5 cm along with multiple necrotic liver metastases. #community-acquired pneumonia: sputum culture+ ecoli. MRSA negative. Stop vanco. C/w cefepime. Blood cultures from 03/11/2020 negative. #Acute on chronic CHF exacerbation: Likely exacerbated due to superimposed pneumonia. Reviewed imaging with Dr. Rutherford, CT showing alveolar opacities, possible pneumonia. RVP negative. s/p AICD. Obtained stat 2D echo. Dr. Cobb reviewed echo: Suspected significantly reduced heart failure, likely below 45%, but possibly as low as 30%. Grade 1 Diastolic dysfunction. Patient now appears clinically close to euvolemic. On spironolactone and isosorbide. #AMS: Likely multifactorial, possibly component of fluid but a dementia. MS seems to have resolved at this time. Pneumonia could have been contributing. CT brain negative. Consult neurology. EEG ordered. CT brain w/ contrast shows no metastatic disease. Cannot get MRI due to AICD #visual hallucination: possible delirium. Neurology consulted, follows with Dr. Skelton. trial seroquel 25 mg qhs. #CAD: c/w ASA/statin. Follows with Dr. Denise. #DM2: resume home insulin Humulin 70/30. ISS. Hypoglycemia precautions. FBSB AC and HS. #Pancreatic cancer with mets: metastatic disease to liver. Follows with oncology center in [place]. Per , at present not surgical candidate, not a c andidate for chemo. Obtain records from oncology. May benefit from palliative consult. # DVT prophylaxis: Heparin A Ghislaine Hospitalist VS,Shahram, I+O VS, Kennethbone, I+O Laboratory Tests 03/14/20 04:48 Vital Signs Date Time Temp Pulse Resp B/P (MAP) Pulse Ox O2 Delivery O2 Flow Rate FiO2 03/14/20 16:00 97.8 84 22 128/72 (90) 95 Room Air 03/14/20 16:00 2.0 I&O- Last 24 Hours up to 6 AM 03/14/20 06:00 Intake Total 1210 ml Output Total 1975 ml Balance -765 ml QIAN MACIEL MD Mar 14, 2020 18:53
[2020-03-14 20:00] VITALS: BP 133/76
[2020-03-14] MEDS: QUEtiapine FUMARATE 25 MG TAB PO SCH (21:05)
[2020-03-14] MEDS: ATORVASTATIN 20 MG TAB PO SCH (21:05)
[2020-03-14] MEDS: HumuLIN (NovoLIN)70/30 INSULIN INJ PER UNIT SC SCH (21:06)
[2020-03-14] MEDS: ACETAMINOPHEN TAB 650MG DOSE (2X325MG) PO PRN (21:07)
[2020-03-14] MEDS ORDERED: QUEtiapine FUMARATE 25 MG TAB PO ONE (21:45)
[2020-03-15] MEDS: CEFEPIME HCL 2 GM in D5W MINI-BAG PLUS 50 ML IV SCH ×2 (02:00→10:11)
[2020-03-15 04:00] VITALS: BP 146/66
[2020-03-15 05:27] LABS: BASO # 0.1 10^3/uL (0.0-0.2); BASO % 0.8 % (0.0-1.0); EOS # 0.2 10^3/uL (0.0-0.5); EOS % 2.5 % (0.0-3.0); HEMATOCRIT 33.1 % (42.0-52.0); HEMOGLOBIN 10.7 g/dl (13.5-17.5); LYMPH # 1.3 10^3/uL (1.5-5.0); LYMPH % 15.4 % (24.0-44.0); MEAN CORPUSCULAR HEMOGLOBIN 27.9 pg (27.0-33.0); MEAN CORPUSCULAR HGB CONC 32.3 g/dl (32.0-36.5); MEAN CORPUSCULAR VOLUME 86.2 fl (80.0-96.0); MONO # 1.3 10^3/uL (0.0-0.8); MONO % 14.8 % (0.0-5.0); NEUTROPHILS # 5.6 10^3/uL (1.5-8.5); NEUTROPHILS % 65.3 % (36.0-66.0); PLATELET COUNT, AUTOMATED 206 10^3/uL (150-450); RED BLOOD COUNT 3.84 10^6/uL (4.30-6.10); WHITE BLOOD COUNT 8.6 10^3/uL (4.0-10.0)
[2020-03-15 05:49] LABS: ALBUMIN 2.2 GM/DL (3.2-5.2); ALT/SGPT 103 U/L (12-78); BILIRUBIN,TOTAL 0.7 MG/DL (0.2-1.0); BLOOD UREA NITROGEN 19 MG/DL (7-18); CALCIUM LEVEL 8.1 MG/DL (8.8-10.2); CARBON DIOXIDE LEVEL 27 MEQ/L (21-32); CHLORIDE LEVEL 105 MEQ/L (98-107); CREATININE FOR GFR 0.79 MG/DL (0.70-1.30); GLOMERULAR FILTRATION RATE > 60.0 (>49); GLUCOSE, FASTING 75 MG/DL (70-100); MAGNESIUM LEVEL 2.4 MG/DL (1.8-2.4); POTASSIUM SERUM 3.5 MEQ/L (3.5-5.1); SODIUM LEVEL 138 MEQ/L (136-145); TOTAL PROTEIN 6.1 GM/DL (6.4-8.2)
[2020-03-15] MEDS: HEPARIN SOD (PORCINE) 5000UNITS/ML 1ML VIAL/SYRINGE SC SCH ×3 (06:00→21:10)
[2020-03-15] MEDS: SLF 3 ML SYR IV SCH ×3 (06:51→21:10)
[2020-03-15] MEDS: HumaLOG INSULIN (NovoLOG) PER UNIT SC SCH ×4 (07:24→21:09)
--- NOTE | 2020-03-15 07:26 | IPNPDOC ---
Text Note Date of Service The patient was seen on 03/15/20. NOTE Subjective: Patient seen and examined this morning. Sitter still with him but there have been no reported events for the past 2 days. Tells me he is no longer short of breath. Denies any chest pain. No overnight events. Objective: Constitutional: Awake and alert, in no apparent distress ENT: Sclera are clear. Mucosa is moist. Respiratory: Lungs CTA bilaterally. No respiratory distress. No use of accessory muscles. Cardiovascular: RRR S1 and S2 are normal, no murmur. Sternotomy midline scar Gastrointestinal: Abdomen is soft, non distended, diffusely tender without r ebound tenderness, BS present. Musculoskeletal: No lower extremity edema. Mild wrist edema. Neurologic: No focal neurological deficit. Mental Status: A&O x3, normal affect Skin: Warm, dry Assessment/plan: 69-year-old male with a past medical history of CAD, DM 2, CHF, status post AICD, BPH, recently diagnosed pancreatic cancer with liver metastases approximately 6 months ago. He presents to the ED from home, with acute shortness of breath and mental confusion. She is altered and unable to provide a clear history. Respiratory viral panel negative including for covid-19. The ER, CTA showed no pulmonary embolism, but showed patchy nonspecific bilateral groundglass opacities, worse on the right, as well as an infiltrating pancreatic mass 3.5 x 5 cm along with multiple necrotic liver metastases. Patient's shortness of breath has resolved after being treated for community-acquired pneu monia and CHF exacerbation. At this time patient is cleared for discharge but will require subacute rehabilitation. I asked the palliative team to evaluate the patient to discuss goals of care. EEG was negative for seizure activity. Patient's altered mental status seems to have resolved and he no longer has visual hallucinations. Patient was treated with cefepime IV for his pneumonia and was transitioned on 03/15/2022 by mouth Augmentin to complete a total of 7 day course. Patient should continue follow-up with his oncologist outpatient. #E. Coli PNA: MRSA negative. Initially cefepime & Vanc. Then cefepime after cultures. Now Augmentin to complete 7 days. Blood cultures from 03/11/2020 nega tive. #Acute on chronic CHF exacerbation: Likely exacerbated due to superimposed pneumonia. RVP negative. s/p AICD. Obtained stat 2D echo. Dr. Cobb reviewed echo: Suspected significantly reduced heart failure, possibly as low as 30%. Grade 1 Diastolic dysfunction. Patient now appears clinically close to euvolemic. On spironolactone and isosorbide. #AMS: Likely multifactorial, possibly component of fluid but a dementia. AMS appears to have resolved at this time. Pneumonia could have been contributing. CT brain negative. Consult neurology. EEG negative for seizures. CT brain w/ contrast shows no metastatic disease. #visual hallucination: Now resolved. Possible delirium. Neurology consulted, follows with Dr. Skelton. trial seroquel 25 mg qhs. Discontinued sitter. #CAD: c/w ASA/statin. Follows with Dr. Denise. #DM2: resume home insulin Humulin 70/30. ISS. Hypoglycemia precautions. FBSB AC and HS. #Pancreatic cancer with mets: metastatic disease to liver. Follows with oncology center in [place]. Per , at present not surgical candidate, not a candidate for chemo. Obtain records from oncology. May benefit from palliative consult. Will need to follow up with oncology upon discharge. # DVT prophylaxis: Heparin A Ghislaine Hospitalist VS,Shahram, I+O VS, Kennethbone, I+O Laboratory Tests 03/15/20 05:11 Vital Signs Date Time Temp Pulse Resp B/P (MAP) Pulse Ox O2 Delivery O2 Flow Rate FiO2 03/15/20 04:00 2.0 03/15/20 04:00 97.5 74 18 146/66 (92) 98 Room Air I&O- Last 24 Hours up to 6 AM 03/15/20 06:00 Intake Total 1100 ml Output Total 400 ml Balance 700 ml QIAN MACIEL MD Mar 15, 2020 07:26
[2020-03-15 08:00] VITALS: BP 115/68
[2020-03-15] MEDS: HumuLIN (NovoLIN)70/30 INSULIN INJ PER UNIT SQ SCH (08:00)
[2020-03-15] MEDS ORDERED: AUGMENTIN 875 MG TAB PO SCH ×2 (09:00)
[2020-03-15] MEDS: CARVedilol 12.5 MG TAB PO SCH ×2 (10:08→21:10)
[2020-03-15] MEDS: PANTOPRAZOLE 40MG TAB (PROTONIX) PO SCH (10:08)
[2020-03-15] MEDS: DOCUSATE SODIUM 100 MG CAP PO SCH ×2 (10:09→21:09)
[2020-03-15] MEDS: CLOPIDOGREL 75 MG TAB PO SCH (10:09)
[2020-03-15] MEDS: allopurinoL 100 MG TAB PO SCH (10:09)
[2020-03-15] MEDS: ASPIRIN 81 MG ENTERIC TAB PO SCH (10:09)
[2020-03-15] MEDS: SPIRONOLACTONE 12.5MG PER 1/2 TABLET PO SCH (10:09)
[2020-03-15] MEDS: MAGNESIUM OXIDE 400 MG TAB (MAG-OX) PO SCH ×2 (10:09→21:09)
[2020-03-15] MEDS: TAMSULOSIN 0.4 MG CAP PO SCH (10:10)
[2020-03-15] MEDS: TORSEMIDE 10 MG TABLET PO SCH ×2 (10:10→17:22)
[2020-03-15] MEDS: ISOSORBIDE MON. (IMDUR) 60 MG XR TAB PO SCH (10:10)
[2020-03-15 14:09] LABS: BODY FLUID CULTURE Not indicated. (.); LEGIONELLA ANTIGEN URINE Negative (Negative); ORGANISM ID Not indicated. (.); SPECIMEN SOURCE Urine (.); URINE STREP PNEUMONIAE ANTIGEN Negative (Negative)
[2020-03-15 16:00] VITALS: BP 128/70
[2020-03-15 20:00] VITALS: BP 121/59
[2020-03-15] MEDS: ATORVASTATIN 20 MG TAB PO SCH (21:09)
[2020-03-15] MEDS: AUGMENTIN 875 MG TAB PO SCH (21:09)
[2020-03-15] MEDS: QUEtiapine FUMARATE 25 MG TAB PO SCH (21:09)
[2020-03-15] MEDS: HumuLIN (NovoLIN)70/30 INSULIN INJ PER UNIT SC SCH (21:50)
[2020-03-16 05:44] LABS: BASO # 0.1 10^3/uL (0.0-0.2); BASO % 0.8 % (0.0-1.0); EOS # 0.3 10^3/uL (0.0-0.5); EOS % 2.4 % (0.0-3.0); HEMATOCRIT 34.7 % (42.0-52.0); HEMOGLOBIN 11.1 g/dl (13.5-17.5); LYMPH # 1.1 10^3/uL (1.5-5.0); LYMPH % 10.5 % (24.0-44.0); MEAN CORPUSCULAR HEMOGLOBIN 27.1 pg (27.0-33.0); MEAN CORPUSCULAR VOLUME 84.8 fl (80.0-96.0); MONO # 1.6 10^3/uL (0.0-0.8); MONO % 15.4 % (0.0-5.0); NEUTROPHILS # 7.2 10^3/uL (1.5-8.5); NEUTROPHILS % 69.5 % (36.0-66.0); PLATELET COUNT, AUTOMATED 240 10^3/uL (150-450); RED BLOOD COUNT 4.09 10^6/uL (4.30-6.10); WHITE BLOOD COUNT 10.4 10^3/uL (4.0-10.0)
[2020-03-16] MEDS: SLF 3 ML SYR IV SCH ×3 (05:52→21:11)
[2020-03-16] MEDS: HEPARIN SOD (PORCINE) 5000UNITS/ML 1ML VIAL/SYRINGE SC SCH ×3 (05:52→21:11)
[2020-03-16 05:56] LABS: ALBUMIN 2.4 GM/DL (3.2-5.2); ALT/SGPT 123 U/L (12-78); BILIRUBIN,TOTAL 0.7 MG/DL (0.2-1.0); BLOOD UREA NITROGEN 20 MG/DL (7-18); CALCIUM LEVEL 8.1 MG/DL (8.8-10.2); CARBON DIOXIDE LEVEL 25 MEQ/L (21-32); CHLORIDE LEVEL 104 MEQ/L (98-107); CREATININE FOR GFR 0.91 MG/DL (0.70-1.30); GLOMERULAR FILTRATION RATE > 60.0 (>49); GLUCOSE, FASTING 129 MG/DL (70-100); MAGNESIUM LEVEL 2.1 MG/DL (1.8-2.4); POTASSIUM SERUM 4.1 MEQ/L (3.5-5.1); SODIUM LEVEL 137 MEQ/L (136-145); TOTAL PROTEIN 5.6 GM/DL (6.4-8.2)
[2020-03-16 08:00] VITALS: BP 129/76
[2020-03-16] MEDS: HumuLIN (NovoLIN)70/30 INSULIN INJ PER UNIT SQ SCH (08:00)
[2020-03-16] MEDS: MAGNESIUM OXIDE 400 MG TAB (MAG-OX) PO SCH ×2 (08:57→20:34)
[2020-03-16] MEDS: TAMSULOSIN 0.4 MG CAP PO SCH (08:58)
[2020-03-16] MEDS: CLOPIDOGREL 75 MG TAB PO SCH (08:58)
[2020-03-16] MEDS: TORSEMIDE 10 MG TABLET PO SCH ×2 (08:58→17:17)
[2020-03-16] MEDS: PANTOPRAZOLE 40MG TAB (PROTONIX) PO SCH (08:58)
[2020-03-16] MEDS: DOCUSATE SODIUM 100 MG CAP PO SCH ×2 (08:58→20:34)
[2020-03-16] MEDS: SPIRONOLACTONE 12.5MG PER 1/2 TABLET PO SCH (08:58)
[2020-03-16] MEDS: HumaLOG INSULIN (NovoLOG) PER UNIT SC SCH ×4 (08:59→21:10)
[2020-03-16] MEDS: allopurinoL 100 MG TAB PO SCH (08:59)
[2020-03-16] MEDS: AUGMENTIN 875 MG TAB PO SCH ×2 (08:59→20:34)
[2020-03-16] MEDS: CARVedilol 12.5 MG TAB PO SCH ×2 (08:59→20:35)
[2020-03-16] MEDS: ASPIRIN 81 MG ENTERIC TAB PO SCH (08:59)
[2020-03-16] MEDS: ISOSORBIDE MON. (IMDUR) 60 MG XR TAB PO SCH (09:00)
[2020-03-16 12:00] VITALS: BP 111/70
[2020-03-16 16:00] VITALS: BP 119/75
--- NOTE | 2020-03-16 16:03 | CR.PDOC ---
General Date of Consultation: Mar 16, 2020 Referring Provider: QIAN MACIEL MD Attending Physician: MADAY LOWE MD Consultation REASON FOR CONSULTATION/CHIEF COMPLAINT: 69 year old with metastatic pancreatic cancer. He wishes to pursue palliative chemotherapy ( immunotherapy) with Dr Liyah Cortez, currently too compromised to tolerate any treatment. Request was made for a palliative care consultation. HISTORY OF PRESENT ILLNESS: Unfortunate gentleman diagnosed with pancreatic cancer with multiple hepatic mets February 2020. He was supposed to have a PET scan, however, declined at home with increased confusion, weakness and hallucinations and was admitted here. He was admitted March 11 2020 with a diagnosis of fluid overload and Isabella reports he was also diagnosed with pneumonia which has improved with antibiotics. He and his Isabella report he has been getting weaker and is not able to get in and out of bed without assistance. She states he has good days and bad days and on a bad day might stay in bed most of a 24 hour day. On a good day he can get up with assistance and sit in a chair for a few hours at a time. It is the patient's and his 's understanding the plan is to send him to short term rehabilitation to improve his physical conditioning and prepare him for palliative immunotherapy. Isabella stated she spoke with Dr. Alberto, the oncologist and he told her Darryn will need to be stronger before immunotherapy can reasonably be done. She also asked Dr. Alberto about the possibility of having him get his immunotherapy here in [place] since the [address] to [place] is extremely taxing for Darryn. ALLERGIES: Please see below. HOME MEDICATIONS: Please see below. PAST MEDICAL HISTORY: 1. COPD 2. CAD s/p VT 3. hypertension 4. CHF 5. DM PAST SURGICAL HISTORY: 1. hemorrhoidectomy 2. CABG x 3 FAMILY HISTORY: Father: d. heart disease Mother: d. heart disease Siblings: B- VT SOCIAL HISTORY: Marital status and/or living arrangements: to second ( 20+ yrs) Children: 10 total blended family Tobacco use: former smoker, quit 20 years ago ETOH: none Illicit drug use: none IV drug use: none REVIEW OF SYSTEMS: CONSTITUTIONAL: denies fevers, chills, night sweats. Reports generlized fatigue HEENT: denies dysphagia, oral pain. No visual changes CARDIOVASCULAR: he denies CP, palpitations, recent CHF exacerbation with increased edema RESPIRATORY: he denies productive cough, wheezing. HIs states he has both GENITOURINARY: denies dysuria or hematuria. MUSCULOSKELETAL: back pain GASTROINTESTINAL: some constipation. Denies nausea, vomiting. UL quadrant pain previously has improved SKIN: denie rashes or pruritis NEUROLOGICAL: +confusion, +memory deficits PSYCHIATRIC: some anxiety over diagnosis ENDOCRINE: DM, erratic blood glucoses according to . HEMATOLOGIC/LYMPHATIC: denies tender nodes, no clotting problems ALLERGIC/IMMUNOLOGIC: metastatic cancer, recent pneumonia. PHYSICAL EXAMINATION: VITAL SIGNS: Please see below. GENERAL APPEARANCE: well developed overweight. Seated comfortably in chair, good eye contact, needs help from ot answer some questions HEENT: HOLLY, mucous membranes moist, pharynx clear RESPIRATORY: scattered exp. wheezes CARDIOVASCULAR: RRR ABDOMEN: obese +BS, no guarding or rebound EXTREMITIES: +edema, no clubbing or cyanosis NEUROLOGICAL: intermittent confusion and short term memory deficits. Decreaed sstrength upper and lower ext. CN 2-12 grossly intact PSYCHIATRIC: Genearlly euthymic but some psychomotor agitation noted intermittently ( shaking leg up and down initially, this behavor extinguished as interview proceeded. LABORATORY DATA: Please see below. ASSESSMENT/PLAN: 1. Metastatic pancreatic cancer 2. COPD 3. CHF Darryn's hope is to improve his general conditioning with short term rehabilitation and avail himself of immunotherapy to prolong his life. He and his understand immuotherapy is intended as palliative treatment only and h as no curative effect. He does have a DNR/DNI and his is HCP. He stated his primary goal is to get home in his own environment and spend as much time as he can with his family. I gently probed whether he had given any thought as to what his plan might be if he could not receive immunotherapy due to his deconditioned state. He stated "I really haven't thought about that." We discussed "5 Wishes" and I left a brochure with Darryn and Isabella. I explained the difference between my clinic and hospice. They appear to be taking it day by day and at this time want to try to pursue immunotherapy. I have told them they are welcome to call me at any time if they have any questions or concerns regarding Darryn's goals of care. At this time he denies any porrly managed symptoms, stated he was not having pain anymore, no dyspnea or other unmanageable problems other than his weakness. Vital Signs/I&O Vital Signs Date Time Temp Pulse Resp B/P (MAP) Pulse Ox O2 Delivery O2 Flow Rate FiO2 03/16/20 12:00 96.7 81 20 111/70 (84) 94 Room Air 03/15/20 08:00 2.0 I&O- Last 24 Hours up to 6 AM 03/16/20 06:00 Intake Total 2100 ml Output Total 1875 ml Balance 225 ml Laboratory Data Labs 24H Laboratory Tests 2 03/15/20 16:52: Bedside Glucose (Misc Panel) 195H 03/15/20 20:20: Bedside Glucose (Misc Panel) 281H 03/16/20 05:15: Anion Gap 8, Glomerular Filtration Rate > 60.0, Calcium Level 8.1L, Magnesium Level 2.1, Total Bilirubin 0.7, Aspartate Amino Transf (AST/SGOT) 103H, Alanine Aminotransferase (ALT/SGPT) 123H, Alkaline Phosphatase 324H, Total Protein 5.6L, Albumin 2.4L, Albumin/Globulin Ratio 0.8 03/16/20 05:18: Immature Granulocyte % (Auto) 1.4, Neutrophils (%) (Auto) 69.5H, Lymphocytes (%) (Auto) 10.5L, Monocytes (%) (Auto) 15.4H, Eosinophils (%) (Auto) 2.4, Basophils (%) (Auto) 0.8, Neutrophils # (Auto) 7.2, Lymphocytes # (Auto) 1.1L, Monocytes # (Auto) 1.6H, Eosinophils # (Auto) 0.3, Basophils # (Auto) 0.1, Nucleated Red Blood Cells % (auto) 0.0 03/16/20 11:31: Bedside Glucose (Misc Panel) 207H CBC/BMP Laboratory Tests 03/16/20 05:15 03/16/20 05:18 Microbiology Microbiology 03/16/20 Respiratory Virus Panel (PCR) (PANKAJ) - Final, Complete 03/11/20 Gram Stain - Final, Complete 03/11/20 Sputum Culture - Final, Complete Escherichia Coli 03/11/20 Blood Culture - Final, Complete NO GROWTH AFTER 5 DAYS 03/11/20 Respiratory Virus Panel (PCR) (PANKAJ) - Final, Complete Allergies Coded Allergies: No Known Allergies (Verified , 1/29/18) Home Medications Scheduled Allopurinol (Allopurinol) 100 Mg Tab, 100 MG PO QAM, (Reported) Aspirin (Aspirin EC) 81 Mg Tablet.dr, 81 MG PO DAILY, (Reported) Atorvastatin Calcium (Atorvastatin Calcium) 80 Mg Tab, 80 MG PO QHS, (Reported) Carvedilol (Carvedilol) 25 Mg Tab, 37.5 MG PO BID, (Reported) Clopidogrel Bisulfate (Clopidogrel) 75 Mg Tab, 75 MG PO QAM, (Reported) Fentanyl (Duragesic) 25 Mcg Patch.td72, 25 MCG TOP Q3RD, (Reported) AFTER THREE DAYS TAKE OFF AND APPLY NEW PATCH TO A DIFFERENT AREA Insulin NPH Hum/Reg Insulin Hm (Humulin 70-30 Vial) 1 Inj Inj, 68 UNITS SQ QAM, (Reported) Insulin NPH Hum/Reg Insulin Hm (Humulin 70-30 Vial) 1 Inj Inj, 48 UNITS SC QHS, (Reported) PT'S HAS NOTICED PT HAS LOW BLOOD SUGAR DUE TO NOT EATING. Isosorbide Mononitrate (Isosorbide Mononitrate ER) 120 Mg Tab, 120 MG PO QAM, (Reported) Lactulose (Lactulose) 10 Gm/15 Ml Solution, 15 ML PO BID, (Reported) Magnesium Oxide (Magnesium Oxide) 400 Mg Tab, 400 MG PO BID, (Reported) Multivitamin (Multivitamins) 1 Each Capsule, 1 CAP PO DAILY, (Reported) Pantoprazole Sodium (Pantoprazole Sodium) 40 Mg Tablet.dr, 40 MG PO DAILY, (Reported) Ramipril (Ramipril) 2.5 Mg Capsule, 2.5 MG PO QHS, (Reported) Spironolactone (Spironolactone) 25 Mg Tab, 12.5 MG PO QAM, (Reported) Tamsulosin HCl (Flomax) 0.4 Mg Capsule, 0.4 MG PO DAILY, (Reported) Torsemide (Torsemide) 10 Mg Tab, 10 MG PO DAILY, (Reported) Scheduled PRN Metoclopramide HCl (Metoclopramide HCl) 10 Mg Tablet, 10 MG PO TID PRN for NAUSEA OR VOMITING, (Reported) Nitroglycerin (Nitrostat) 0.4 Mg Subl, 0.4 MG SL for ANGINA, (Reported) Oxycodone HCl/Acetaminophen (Oxycodon-Acetaminophen 7.5-325) 1 Each Tablet, 1 TAB PO QID PRN for pain, (Reported) Glo SANCHEZ BACK SIZER Mar 16, 2020 15:58
[2020-03-16 20:00] VITALS: BP 150/63
[2020-03-16] MEDS: QUEtiapine FUMARATE 25 MG TAB PO SCH (20:34)
[2020-03-16] MEDS: ATORVASTATIN 20 MG TAB PO SCH (20:35)
[2020-03-16] MEDS: HumuLIN (NovoLIN)70/30 INSULIN INJ PER UNIT SC SCH (20:36)
[2020-03-16] MEDS ORDERED: HumuLIN (NovoLIN)70/30 INSULIN INJ PER UNIT SC SCH (21:00)
[2020-03-17] MEDS ORDERED: LORazepam 2 MG/ML VIAL IV ONE (00:45)
[2020-03-17] MEDS: HEPARIN SOD (PORCINE) 5000UNITS/ML 1ML VIAL/SYRINGE SC SCH ×3 (06:04→21:29)
[2020-03-17] MEDS: SLF 3 ML SYR IV SCH ×3 (06:04→21:33)
[2020-03-17] MEDS: HumaLOG INSULIN (NovoLOG) PER UNIT SC SCH ×4 (07:30→21:00)
[2020-03-17 08:00] VITALS: BP 134/77
[2020-03-17] MEDS: HumuLIN (NovoLIN)70/30 INSULIN INJ PER UNIT SQ SCH (08:00)
[2020-03-17] MEDS: PANTOPRAZOLE 40MG TAB (PROTONIX) PO SCH (10:05)
[2020-03-17] MEDS: CLOPIDOGREL 75 MG TAB PO SCH (10:05)
[2020-03-17] MEDS: SPIRONOLACTONE 12.5MG PER 1/2 TABLET PO SCH (10:05)
[2020-03-17] MEDS: DOCUSATE SODIUM 100 MG CAP PO SCH ×2 (10:05→21:32)
[2020-03-17] MEDS: allopurinoL 100 MG TAB PO SCH (10:05)
[2020-03-17] MEDS: MAGNESIUM OXIDE 400 MG TAB (MAG-OX) PO SCH ×2 (10:06→21:32)
[2020-03-17] MEDS: TORSEMIDE 10 MG TABLET PO SCH ×2 (10:06→17:55)
[2020-03-17] MEDS: ISOSORBIDE MON. (IMDUR) 60 MG XR TAB PO SCH (10:07)
[2020-03-17] MEDS: AUGMENTIN 875 MG TAB PO SCH ×2 (10:07→21:29)
[2020-03-17] MEDS: TAMSULOSIN 0.4 MG CAP PO SCH (10:07)
[2020-03-17] MEDS: ASPIRIN 81 MG ENTERIC TAB PO SCH (10:08)
[2020-03-17] MEDS: CARVedilol 12.5 MG TAB PO SCH ×2 (10:08→21:31)
[2020-03-17 19:42] VITALS: BP 111/79
[2020-03-17] MEDS: HumuLIN (NovoLIN)70/30 INSULIN INJ PER UNIT SC SCH (21:29)
[2020-03-17] MEDS: QUEtiapine FUMARATE 25 MG TAB PO SCH (21:32)
[2020-03-17] MEDS: ATORVASTATIN 20 MG TAB PO SCH (21:32)
[2020-03-18] MEDS: HEPARIN SOD (PORCINE) 5000UNITS/ML 1ML VIAL/SYRINGE SC SCH ×3 (05:14→21:27)
[2020-03-18] MEDS: SLF 3 ML SYR IV SCH ×3 (05:16→21:28)
[2020-03-18 05:33] VITALS: BP 111/60
[2020-03-18] MEDS: HumaLOG INSULIN (NovoLOG) PER UNIT SC SCH ×5 (07:30→21:00)
[2020-03-18] MEDS: HumuLIN (NovoLIN)70/30 INSULIN INJ PER UNIT SQ SCH (08:00)
[2020-03-18] MEDS: AUGMENTIN 875 MG TAB PO SCH ×2 (08:56→21:28)
[2020-03-18] MEDS: ASPIRIN 81 MG ENTERIC TAB PO SCH (08:56)
[2020-03-18] MEDS: MAGNESIUM OXIDE 400 MG TAB (MAG-OX) PO SCH ×2 (08:57→21:28)
[2020-03-18] MEDS: ISOSORBIDE MON. (IMDUR) 60 MG XR TAB PO SCH (09:00)
[2020-03-18] MEDS: CARVedilol 12.5 MG TAB PO SCH ×2 (09:00→21:55)
[2020-03-18] MEDS: CLOPIDOGREL 75 MG TAB PO SCH (09:13)
[2020-03-18] MEDS: SPIRONOLACTONE 12.5MG PER 1/2 TABLET PO SCH (09:13)
[2020-03-18] MEDS: DOCUSATE SODIUM 100 MG CAP PO SCH ×2 (09:13→21:26)
[2020-03-18] MEDS: allopurinoL 100 MG TAB PO SCH (09:13)
[2020-03-18] MEDS: TAMSULOSIN 0.4 MG CAP PO SCH (09:13)
[2020-03-18] MEDS: PANTOPRAZOLE 40MG TAB (PROTONIX) PO SCH (09:14)
[2020-03-18] MEDS: TORSEMIDE 10 MG TABLET PO SCH ×2 (09:14→17:34)
[2020-03-18 19:52] VITALS: BP 102/47
[2020-03-18] MEDS: HumuLIN (NovoLIN)70/30 INSULIN INJ PER UNIT SC SCH (21:27)
[2020-03-18] MEDS: QUEtiapine FUMARATE 25 MG TAB PO SCH (21:28)
[2020-03-18] MEDS: ATORVASTATIN 20 MG TAB PO SCH (21:29)
[2020-03-19] MEDS: HEPARIN SOD (PORCINE) 5000UNITS/ML 1ML VIAL/SYRINGE SC SCH ×3 (05:41→21:49)
[2020-03-19] MEDS: SLF 3 ML SYR IV SCH (05:41)
[2020-03-19 05:44] VITALS: BP 105/56
[2020-03-19] MEDS: HumaLOG INSULIN (NovoLOG) PER UNIT SC SCH ×4 (07:30→21:00)
[2020-03-19] MEDS: HumuLIN (NovoLIN)70/30 INSULIN INJ PER UNIT SQ SCH (08:00)
[2020-03-19] MEDS: SPIRONOLACTONE 12.5MG PER 1/2 TABLET PO SCH (08:46)
[2020-03-19] MEDS: DOCUSATE SODIUM 100 MG CAP PO SCH ×2 (08:46→21:50)
[2020-03-19] MEDS: TORSEMIDE 10 MG TABLET PO SCH ×2 (08:46→17:49)
[2020-03-19] MEDS: TAMSULOSIN 0.4 MG CAP PO SCH (08:46)
[2020-03-19] MEDS: ASPIRIN 81 MG ENTERIC TAB PO SCH (08:47)
[2020-03-19] MEDS: PANTOPRAZOLE 40MG TAB (PROTONIX) PO SCH (08:47)
[2020-03-19] MEDS: AUGMENTIN 875 MG TAB PO SCH ×2 (08:47→21:51)
[2020-03-19] MEDS: ISOSORBIDE MON. (IMDUR) 60 MG XR TAB PO SCH (08:47)
[2020-03-19] MEDS: MAGNESIUM OXIDE 400 MG TAB (MAG-OX) PO SCH ×2 (08:47→21:52)
[2020-03-19] MEDS: allopurinoL 100 MG TAB PO SCH (08:48)
[2020-03-19] MEDS: CLOPIDOGREL 75 MG TAB PO SCH (08:48)
[2020-03-19] MEDS: CARVedilol 12.5 MG TAB PO SCH ×2 (08:48→21:00)
[2020-03-19 09:00] VITALS: BP 121/75
[2020-03-19] MEDS: MOM 30ML SUSPENSION UDC PO PRN (17:49)
[2020-03-19] MEDS: HumuLIN (NovoLIN)70/30 INSULIN INJ PER UNIT SC SCH (21:50)
[2020-03-19] MEDS: ATORVASTATIN 20 MG TAB PO SCH (21:52)
[2020-03-19] MEDS: QUEtiapine FUMARATE 25 MG TAB PO SCH (21:52)
[2020-03-20 06:00] VITALS: BP 114/71
[2020-03-20] MEDS: HEPARIN SOD (PORCINE) 5000UNITS/ML 1ML VIAL/SYRINGE SC SCH ×3 (06:07→21:23)
[2020-03-20] MEDS: HumaLOG INSULIN (NovoLOG) PER UNIT SC SCH ×4 (07:30→21:24)
[2020-03-20] MEDS: HumuLIN (NovoLIN)70/30 INSULIN INJ PER UNIT SQ SCH (08:00)
[2020-03-20] MEDS: CARVedilol 12.5 MG TAB PO SCH ×2 (09:29→21:22)
[2020-03-20] MEDS: ASPIRIN 81 MG ENTERIC TAB PO SCH (09:30)
[2020-03-20] MEDS: TAMSULOSIN 0.4 MG CAP PO SCH (09:30)
[2020-03-20] MEDS: TORSEMIDE 10 MG TABLET PO SCH ×2 (09:30→17:16)
[2020-03-20] MEDS: allopurinoL 100 MG TAB PO SCH (09:30)
[2020-03-20] MEDS: MAGNESIUM OXIDE 400 MG TAB (MAG-OX) PO SCH ×2 (09:30→21:22)
[2020-03-20] MEDS: DOCUSATE SODIUM 100 MG CAP PO SCH ×2 (09:30→21:22)
[2020-03-20] MEDS: PANTOPRAZOLE 40MG TAB (PROTONIX) PO SCH (09:30)
[2020-03-20] MEDS: CLOPIDOGREL 75 MG TAB PO SCH (09:30)
[2020-03-20] MEDS: SPIRONOLACTONE 12.5MG PER 1/2 TABLET PO SCH (09:30)
[2020-03-20] MEDS: ISOSORBIDE MON. (IMDUR) 60 MG XR TAB PO SCH (09:31)
[2020-03-20] MEDS: QUEtiapine FUMARATE 25 MG TAB PO SCH (21:21)
[2020-03-20] MEDS: ATORVASTATIN 20 MG TAB PO SCH (21:23)
[2020-03-20] MEDS: HumuLIN (NovoLIN)70/30 INSULIN INJ PER UNIT SC SCH (21:24)
[2020-03-21] MEDS: HEPARIN SOD (PORCINE) 5000UNITS/ML 1ML VIAL/SYRINGE SC SCH ×4 (05:43→21:34)
[2020-03-21 06:00] VITALS: BP 121/73
[2020-03-21] MEDS: TORSEMIDE 10 MG TABLET PO SCH ×2 (08:05→18:16)
[2020-03-21] MEDS: SPIRONOLACTONE 12.5MG PER 1/2 TABLET PO SCH (08:05)
[2020-03-21] MEDS: MAGNESIUM OXIDE 400 MG TAB (MAG-OX) PO SCH ×2 (08:05→21:30)
[2020-03-21] MEDS: TAMSULOSIN 0.4 MG CAP PO SCH (08:05)
[2020-03-21] MEDS: ISOSORBIDE MON. (IMDUR) 60 MG XR TAB PO SCH (08:05)
[2020-03-21] MEDS: PANTOPRAZOLE 40MG TAB (PROTONIX) PO SCH (08:05)
[2020-03-21] MEDS: CLOPIDOGREL 75 MG TAB PO SCH (08:05)
[2020-03-21] MEDS: ASPIRIN 81 MG ENTERIC TAB PO SCH (08:05)
[2020-03-21] MEDS: CARVedilol 12.5 MG TAB PO SCH ×2 (08:06→21:00)
[2020-03-21] MEDS: allopurinoL 100 MG TAB PO SCH (08:06)
[2020-03-21] MEDS: HumaLOG INSULIN (NovoLOG) PER UNIT SC SCH ×4 (08:06→21:00)
[2020-03-21] MEDS: HumuLIN (NovoLIN)70/30 INSULIN INJ PER UNIT SQ SCH (08:07)
[2020-03-21] MEDS: DOCUSATE SODIUM 100 MG CAP PO SCH ×2 (08:21→21:31)
[2020-03-21] MEDS: HumuLIN (NovoLIN)70/30 INSULIN INJ PER UNIT SC SCH (21:29)
[2020-03-21] MEDS: QUEtiapine FUMARATE 25 MG TAB PO SCH (21:30)
[2020-03-21] MEDS: ATORVASTATIN 20 MG TAB PO SCH (21:30)
[2020-03-22 06:00] VITALS: BP 128/73
[2020-03-22] MEDS: HEPARIN SOD (PORCINE) 5000UNITS/ML 1ML VIAL/SYRINGE SC SCH ×3 (06:12→20:32)
[2020-03-22] MEDS: MAGNESIUM OXIDE 400 MG TAB (MAG-OX) PO SCH ×2 (08:23→20:30)
[2020-03-22] MEDS: PANTOPRAZOLE 40MG TAB (PROTONIX) PO SCH (08:23)
[2020-03-22] MEDS: DOCUSATE SODIUM 100 MG CAP PO SCH ×2 (08:23→20:28)
[2020-03-22] MEDS: allopurinoL 100 MG TAB PO SCH (08:24)
[2020-03-22] MEDS: SPIRONOLACTONE 12.5MG PER 1/2 TABLET PO SCH (08:24)
[2020-03-22] MEDS: CARVedilol 12.5 MG TAB PO SCH ×2 (08:24→20:28)
[2020-03-22] MEDS: CLOPIDOGREL 75 MG TAB PO SCH (08:24)
[2020-03-22] MEDS: ASPIRIN 81 MG ENTERIC TAB PO SCH (08:24)
[2020-03-22] MEDS: TORSEMIDE 10 MG TABLET PO SCH ×2 (08:24→17:49)
[2020-03-22] MEDS: TAMSULOSIN 0.4 MG CAP PO SCH (08:24)
[2020-03-22] MEDS: ISOSORBIDE MON. (IMDUR) 60 MG XR TAB PO SCH (08:24)
[2020-03-22] MEDS: HumuLIN (NovoLIN)70/30 INSULIN INJ PER UNIT SQ SCH (08:25)
[2020-03-22] MEDS: HumaLOG INSULIN (NovoLOG) PER UNIT SC SCH ×4 (08:25→19:50)
--- NOTE | 2020-03-22 17:27 | IPNPDOC ---
Date Seen The patient was seen on 03/22/20. Progress Note SUBJECTIVE: Patient was seen and examined at bedside. Doing well, no acute events overnight. She states that he has not urinated since this morning at 6 AM. He denies abdominal pain. Requested nurse to perform a bladder scan to ensure there is no urinary retention. Mentally, he is oriented to person, but he has difficulty verifying his location of the than that he is and [place], as well as the exact date. OBJECTIVE PHYSICAL EXAMINATION: VITAL SIGNS: please see below General: NAD, comfortable HEENT: PERRLA, EOMI, sclerae clear Neck: supple, normal ROM, no JVD Respiratory: lungs CTAB, no wheeze, no rales, no crackles CVS: RRR, normal S1, S2, no murmurs Abdo: soft, no masses, no hepatosplenomegaly, BS+, no rebound tenderness Extremities: no edema, pulses 2+ MSK: no joint deformities, normal ROM Neuro: no focal neuro deficits, moving all 4 extremities, CN2-12 intact. Strength 5/5 in all 4 extremities. No nystagmus. Psych: calm, cooperative, AAO x 3 LABORATORY DATA, IMAGING STUDIES, MICROBIOLOGY: Please see below. DVT prophylaxis ordered?: Y 69-year-old male with a past medical history of CAD, DM 2, CHF, status post AICD, BPH, recently diagnosed pancreatic cancer with liver metastases approximately 6 months ago. He presents to the ED from home, with acute shortness of breath and mental confusion. She is altered and unable to provide a clear history. Respiratory viral panel negative including for covid-19. The ER, CTA showed no pulmonary embolism, but showed patchy nonspecific bilateral groundglass opacities, worse on the right, as well as an infiltrating pancreatic mass 3.5 x 5 cm along with multiple necrotic liver metastases. Patient's shortness of breath has resolved after being treated for community-acquired pneumonia and CHF exacerbation. At this time patient is cleared for discharge but will require subacute rehabilitation. I asked the palliative team to evaluate the patient to discuss goals of care. EEG was negative for seizure activity. Patient's altered mental status seems to have resolved and he no longer has visual hallucinations. Patient was treated with cefepime IV for his pneumonia and was transitioned on 03/15/2022 by mouth Augmentin to complete a total of 7 day course. #E. Coli PNA: MRSA negative. Initially cefepime & Vanc. Then cefepime after cultures. Completed course of augmentin. Blood cultures from 03/11/2020 negative. #Acute on chronic CHF exacerbation: Likely exacerbated due to superimposed pneumonia. RVP negative. s/p AICD. Obtained stat 2D echo. Dr. Cobb reviewed echo: Suspected significantly reduced heart failure, possibly as low as 30%. Grade 1 Diastolic dysfunction. Patient now appears euvolemic. On spironolactone and isosorbide. #AMS: Multifactorial. Metabolic encephalopathy. Pneumonia could have been contributing. CT brain negative. Consult neurology. EEG negative for seizures. CT brain w/ contrast shows no metastatic disease. #Urinary retention: bladder scan, straight cath if > 300 cc. #SOB: stated mild SOB. c/w duoneb prn #visual hallucination: Now resolved. Possible delirium. Neurology consulted, follows with Dr. Skelton. trial seroquel 25 mg qhs. Discontinued sitter. #CAD: c/w ASA/statin. Follows with Dr. Denise. #DM2: resume home insulin Humulin 70/30. ISS. Hypoglycemia precautions. FBSB AC and HS. #Pancreatic cancer with mets: metastatic disease to liver. Follows with oncology center in [place]. Per , at present not surgical candidate, not a candidate for immunotherapy. # DVT prophylaxis: Heparin Spoke on 03/22/20 with patient's oncologist, Dr. Mishra. Patient was at a time a candidate for immunotherapy. However, due to his recent physical and mental deterioration, he is in longer candidate at this time. It is possible that he may become a candidate after subacute rehabilitation. However, this cannot be guaranteed. Dr. Mishra was in support of either decision (ie subacute rehab vs hospice). Discussed with , Isabella Aragon regarding the decision of subacute rehabilitation versus hospice. She believes that bother him and her would prefer to spend more time together, rather than be apart during his rehabilitation as visitation restrictions are in place due to coronavirus pandemic. Thus, she makes the decision to pursue home hospice along with the possibility of any additional home health supports. I will discuss this with PFS tomorrow and will involve palliative/hospice care to assist with planning. He was seen by hospice on March 16. VS, I&O, 24H, Fishbone Vital Signs/I&O Vital Signs Date Time Temp Pulse Resp B/P (MAP) Pulse Ox O2 Delivery O2 Flow Rate FiO2 03/22/20 08:24 128/73 03/22/20 08:24 82 03/22/20 06:00 98.2 19 95 Room Air I&O- Last 24 Hours up to 6 AM 03/22/20 06:00 Intake Total 550 ml Output Total 450 ml Balance 100 ml Laboratory Data 24H LABS Laboratory Tests 2 03/21/20 18:04: Bedside Glucose (Misc Panel) 239H 03/21/20 20:55: Bedside Glucose (Misc Panel) 179H 03/22/20 07:26: Bedside Glucose (Misc Panel) 167H 03/22/20 11:22: Bedside Glucose (Misc Panel) 196H 03/22/20 16:26: Bedside Glucose (Misc Panel) 182H Microbiology Microbiology 03/16/20 Respiratory Virus Panel (PCR) (PANKAJ) - Final, Complete MADAY LOWE MD Mar 22, 2020 17:27
[2020-03-22] MEDS: ACETAMINOPHEN TAB 650MG DOSE (2X325MG) PO PRN ×2 (17:48→20:29)
[2020-03-22] MEDS: QUEtiapine FUMARATE 25 MG TAB PO SCH (20:28)
[2020-03-22] MEDS: ATORVASTATIN 20 MG TAB PO SCH (20:30)
[2020-03-22] MEDS: HumuLIN (NovoLIN)70/30 INSULIN INJ PER UNIT SC SCH (20:31)
[2020-03-23] MEDS: HEPARIN SOD (PORCINE) 5000UNITS/ML 1ML VIAL/SYRINGE SC SCH ×3 (05:23→22:15)
[2020-03-23 06:00] VITALS: BP 96/51
[2020-03-23] MEDS: SPIRONOLACTONE 12.5MG PER 1/2 TABLET PO SCH (08:00)
[2020-03-23] MEDS: MAGNESIUM OXIDE 400 MG TAB (MAG-OX) PO SCH ×2 (08:00→22:15)
[2020-03-23] MEDS: ASPIRIN 81 MG ENTERIC TAB PO SCH (08:00)
[2020-03-23] MEDS: DOCUSATE SODIUM 100 MG CAP PO SCH ×2 (08:01→22:14)
[2020-03-23] MEDS: TAMSULOSIN 0.4 MG CAP PO SCH (08:01)
[2020-03-23] MEDS: allopurinoL 100 MG TAB PO SCH (08:01)
[2020-03-23] MEDS: PANTOPRAZOLE 40MG TAB (PROTONIX) PO SCH (08:01)
[2020-03-23] MEDS: CLOPIDOGREL 75 MG TAB PO SCH (08:01)
[2020-03-23] MEDS: ISOSORBIDE MON. (IMDUR) 60 MG XR TAB PO SCH (08:01)
[2020-03-23] MEDS: HumaLOG INSULIN (NovoLOG) PER UNIT SC SCH ×4 (08:02→20:20)
[2020-03-23] MEDS: HumuLIN (NovoLIN)70/30 INSULIN INJ PER UNIT SQ SCH (08:03)
[2020-03-23] MEDS: CARVedilol 12.5 MG TAB PO SCH ×2 (08:57→20:21)
[2020-03-23] MEDS: TORSEMIDE 10 MG TABLET PO SCH ×2 (08:58→17:00)
[2020-03-23] MEDS: ACETAMINOPHEN TAB 650MG DOSE (2X325MG) PO PRN ×2 (12:23→17:17)
[2020-03-23 20:05] VITALS: BP 93/53
[2020-03-23] MEDS: QUEtiapine FUMARATE 25 MG TAB PO SCH (22:14)
[2020-03-23] MEDS: ATORVASTATIN 20 MG TAB PO SCH (22:14)
[2020-03-23] MEDS: HumuLIN (NovoLIN)70/30 INSULIN INJ PER UNIT SC SCH (22:16)
[2020-03-23] MEDS: MOM 30ML SUSPENSION UDC PO PRN (22:28)
[2020-03-24] MEDS: ACETAMINOPHEN TAB 650MG DOSE (2X325MG) PO PRN (01:49)
[2020-03-24 05:52] VITALS: BP 108/59
[2020-03-24] MEDS: HEPARIN SOD (PORCINE) 5000UNITS/ML 1ML VIAL/SYRINGE SC SCH (06:40)
[2020-03-24] MEDS ORDERED: ACET1TAB55 PO (07:47)
[2020-03-24] MEDS ORDERED: HUMU70IN SC (07:47)
[2020-03-24] MEDS ORDERED: QUET1TAB7 PO (07:47)
[2020-03-24] MEDS ORDERED: METO10TA2 PO (07:47)
[2020-03-24] MEDS ORDERED: TORS10TA3 PO (07:47)
[2020-03-24] MEDS ORDERED: DOCU100C16 PO (07:47)
[2020-03-24] MEDS ORDERED: MORP20SO3 PO ×2 (07:48→09:38)
[2020-03-24] MEDS ORDERED: HYOS125TA PO (07:48)
[2020-03-24] MEDS: HumuLIN (NovoLIN)70/30 INSULIN INJ PER UNIT SQ SCH (08:15)
[2020-03-24] MEDS: HumaLOG INSULIN (NovoLOG) PER UNIT SC SCH ×2 (08:16→12:00)
[2020-03-24] MEDS: SPIRONOLACTONE 12.5MG PER 1/2 TABLET PO SCH (08:16)
[2020-03-24] MEDS: ISOSORBIDE MON. (IMDUR) 60 MG XR TAB PO SCH (08:17)
[2020-03-24 08:18] VITALS: BP 108/59
[2020-03-24] MEDS: CARVedilol 12.5 MG TAB PO SCH (08:18)
[2020-03-24] MEDS: MAGNESIUM OXIDE 400 MG TAB (MAG-OX) PO SCH (08:19)
[2020-03-24] MEDS: ASPIRIN 81 MG ENTERIC TAB PO SCH (08:19)
[2020-03-24] MEDS: CLOPIDOGREL 75 MG TAB PO SCH (08:20)
[2020-03-24] MEDS: allopurinoL 100 MG TAB PO SCH (08:20)
[2020-03-24] MEDS: PANTOPRAZOLE 40MG TAB (PROTONIX) PO SCH (08:20)
[2020-03-24] MEDS: TAMSULOSIN 0.4 MG CAP PO SCH (08:21)
[2020-03-24] MEDS: TORSEMIDE 10 MG TABLET PO SCH (08:21)
[2020-03-24] MEDS: DOCUSATE SODIUM 100 MG CAP PO SCH (08:21)
[2020-03-24] MEDS ORDERED: ATIV1TAB10 PO (09:38)
--- NOTE | 2020-03-24 09:43 | DS.PDOC ---
Discharge Summary General Date of Admission Mar 11, 2020 at 09:24 Date of Discharge 03/24/20 Attending Physician: MADAY LOWE MD Discharge Summary PROCEDURES PERFORMED DURING STAY: [None]. ADMITTING DIAGNOSES: acute systolic diastolic chf exacerbation encephalopathy CAD DM2 pancreatic cancer with metastases DISCHARGE DIAGNOSES: acute systolic diastolic chf exacerbation encephalopathy CAD DM2 pancreatic cancer with metastases COMPLICATIONS/CHIEF COMPLAINT: Fluid Overload. HISTORY OF PRESENT ILLNESS: Mr. Aragon is a 69-year-old male with a past medical history of CAD, DM 2, CHF, status post AICD, BPH, recently diagnosed pancreatic cancer with liver metastases approximately 6 months ago. He presents to the ED from home, with acute shortness of breath and mental confusion. She is altered and unable to provide a clear history. Respiratory viral panel negative including for covid-19. The ER, CTA showed no pulmonary embolism, but showed patchy nonspecific bilateral groundglass opacities, worse on the right, as well as an infiltrating pancreatic mass 3.5 x 5 cm along with multiple necrotic liver metastases. On arrival, blood pressure 122/60, respiratory 22, pulse ox 98% on 2 L, temperature 97.2. , CBC 10.2, hemoglobin 12.1, hematocrit 38.3. Neutrophils 70.7. , Sodium 136, potassium 3.9, total bilirubin 1.2, AST 52, ALP 277, GGT 494. Pro-calcitonin ordered and pending. Patient was given 40 mg of Lasix IV for suspected fluid overload. Collateral history taken from the patient's at bedside. She states that the patient became hypoglycemic prior to arrival to the ED on arrival EMS staff provided him with D50. This was likely due to insulin administration in the setting of reduced by mouth intake. She reports progressively worsening altered mental status for the past several months, particularly worse in the past 2 weeks. Patient complaining of hallucinations. He was diagnosed with pancreatic cancer 6 months ago for which he has been followed by [facility]. Patient follows with Dr. Denise for further events, heart failure and CAD. HOSPITAL COURSE: 69-year-old male with a past medical history of CAD, DM 2, CHF, status post AICD, BPH, recently diagnosed pancreatic cancer with liver metastases approximately 6 months ago. He presents to the ED from home, with acute shortness of breath and mental confusion. She is altered and unable to provide a clear history. Respiratory viral panel negative including for covid- 19. The ER, CTA showed no pulmonary embolism, but showed patchy nonspecific bilateral groundglass opacities, worse on the right, as well as an infiltrating pancreatic mass 3.5 x 5 cm along with multiple necrotic liver metastases. Patient's shortness of breath has resolved after being treated for community- acquired pneumonia and CHF exacerbation. At this time patient is cleared for discharge but will require subacute rehabilitation. I asked the palliative team to evaluate the patient to discuss goals of care. EEG was negative for seizure activity. Patient's altered mental status seems to have resolved and he no longer has visual hallucinations. Patient was treated with cefepime IV for his pneumonia and was transitioned on 03/15/2022 by mouth Augmentin to complete a total of 7 day course. #E. Coli PNA: MRSA negative. Initially cefepime & Vanc. Then cefepime after cultures. Completed course of augmentin. Blood cultures from 03/11/2020 negative. #Acute on chronic CHF exacerbation: Likely exacerbated due to superimposed pneumonia. RVP negative. s/p AICD. Obtained stat 2D echo. Dr. Cobb reviewed echo: Suspected significantly reduced heart failure, possibly as low as 30%. Grade 1 Diastolic dysfunction. Patient now appears euvolemic. On spironolactone and isosorbide. #AMS: Multifactorial. Metabolic encephalopathy. Pneumonia could have been contributing. CT brain negative. Consult neurology. EEG negative for seizures. CT brain w/ contrast shows no metastatic disease. #Urinary retention: bladder scan, straight cath if > 300 cc. #SOB: stated mild SOB. c/w duoneb prn #visual hallucination: Now resolved. Possible delirium. Neurology consulted, follows with Dr. kSelton. trial seroquel 25 mg qhs. Discontinued sitter. #CAD: c/w ASA/statin. Follows with Dr. Denise. #hx tachyarrhythmia: AICD disabled by Dr. Almonte on 03/23/20 as patient will be going home with home hospice. #DM2: resume home insulin Humulin 70/30. ISS. Hypoglycemia precautions. FBSB AC and HS. #Pancreatic cancer with mets: metastatic disease to liver. Follows with oncology center in [place]. Per , at present not surgical candidate, not a candidate for immunotherapy. Decision to proceed with home hospice. # DVT prophylaxis: Heparin Spoke on 03/22/20 with patient's oncologist, Dr. Mishra. Patient was at a time a candidate for immunotherapy. However, due to his recent physical and mental deterioration, he is in longer candidate at this time. It is possible that he may become a candidate after subacute rehabilitation. However, this cannot be guaranteed. Dr. Mishra was in support of either decision (ie subacute rehab vs hospice). Discussed with , Isabella Aragon regarding the decision of subacute rehabilitation versus hospice. She believes that bother him and her would prefer to spend more time together, rather than be apart during his rehabilitation as visitation restrictions are in place due to coronavirus pandemic. Thus, she makes the decision to pursue home hospicE. DISCHARGE MEDICATIONS: Please see below. ALLERGIES: Please see below. PHYSICAL EXAMINATION ON DISCHARGE: VITAL SIGNS: please see below General: NAD, comfortable HEENT: PERRLA, EOMI, sclerae clear Neck: supple, normal ROM, no JVD Respiratory: lungs CTAB, no wheeze, no rales, no crackles CVS: RRR, normal S1, S2, no murmurs Abdo: soft, no masses, no hepatosplenomegaly, BS+, no rebound tenderness Extremities: no edema, pulses 2+ MSK: no joint deformities, normal ROM Neuro: no focal neuro deficits, moving all 4 extremities, CN2-12 intact. Strength 5/5 in all 4 extremities. No nystagmus. Psych: calm, cooperative, AAO x 3 LABORATORY DATA: Please see below. IMAGING: CT angio chest: No acute pulmonary embolic disease. Patchy nonspecific bilateral ground-glass opacities most pronounced in the right lung. Infiltrating pancreatic body mass inseparable from the celiac trunk. Mass measures at least 3.5 x 5 cm. Multiple centrally necrotic liver metastasis. Liver US: Examination is limited by body habitus and associated technical factors. Liver demonstrates coarsened echotexture without focal hepatic lesion identified. The pancreas is incompletely evaluated due to interposed bowel gas but visualized portions appear grossly normal. Gallbladder is unremarkable and without obvious wall thickening or gallstones. The common bile duct measures 3.7 mm diameter. Right kidney is normal in reniform shape without hydronephrosis and measures 11.5 x 4.9 x 4.7 cm. No ascites in the visualized right upper quadrant. Head CT: Examination is limited by body habitus and associated technical factors. Liver demonstrates coarsened echotexture without focal hepatic lesion identified. The pancreas is incompletely evaluated due to interposed bowel gas but visualized portions appear grossly normal. Gallbladder is unremarkable and without obvious wall thickening or gallstones. The common bile duct measures 3.7 mm diameter. Right kidney is normal in reniform shape without hydronephrosis and measures 11.5 x 4.9 x 4.7 cm. No ascites in the visualized right upper quadrant. CT head w contrast: There is no abnormal enhancement, no suspicion for metastases. PROGNOSIS: hospice. ACTIVITY: [As tolerated]. DIET: regular DISCHARGE PLAN: DC home with home hospice. Equipment has been delivered. Hospice/palliative service wishes adjust medications on home visit. [employer] meds sent. DISCHARGE INSTRUCTIONS: PLEASE FOLLOW UP WITH YOUR PRIMARY CARE DOCTOR WITHIN 3-5 DAYS. HOME HOSPICE HAS BEEN ARRANGED, EQUIPMENT HAS BEEN DELIVERED PLEASE TAKE YOUR MEDICATIONS PRESCRIBED IF YOU DEVELOP CHEST PAIN, SHORTNESS OF BREATH, FEVERS, CHILLS, BLEEDING OR OTHERWISE WORSENING FO YOUR SYMPTOMS, PLASE CALL 911 OR RETURN TO THE EMERGENCY DEPARTMENT. DISCHARGE CONDITION: [Stable]. TIME SPENT ON DISCHARGE: Greater than 30 minutes. Vital Signs/I&Os Vital Signs Date Time Temp Pulse Resp B/P (MAP) Pulse Ox O2 Delivery O2 Flow Rate FiO2 03/24/20 08:18 79 108/59 03/24/20 05:52 98.0 20 96 Room Air I&O- Last 24 Hours up to 6 AM 03/24/20 06:00 Intake Total 520 ml Output Total 850 ml Balance -330 ml Laboratory Data Labs 24H Laboratory Tests 2 03/23/20 11:47: Bedside Glucose (Misc Panel) 196H 03/23/20 16:37: Bedside Glucose (Misc Panel) 172H 03/23/20 20:15: Bedside Glucose (Misc Panel) 155H 03/24/20 07:08: Bedside Glucose (Misc Panel) 150H FSBS Laboratory Tests Test 03/23/20 11:47 03/23/20 16:37 03/23/20 20:15 03/24/20 07:08 Range/Units Bedside Glucose (Misc Panel) 196 172 155 150 80-115 MG/DL Microbiology Microbiology 03/16/20 Respiratory Virus Panel (PCR) (PANKAJ) - Final, Complete Discharge Medications Scheduled Allopurinol (Allopurinol) 100 Mg Tab, 100 MG PO QAM, (Reported) Aspirin (Aspirin EC) 81 Mg Tablet.dr, 81 MG PO DAILY, (Reported) Atorvastatin Calcium (Atorvastatin Calcium) 80 Mg Tab, 80 MG PO QHS, (Reported) Carvedilol (Carvedilol) 25 Mg Tab, 37.5 MG PO BID, (Reported) Clopidogrel Bisulfate (Clopidogrel) 75 Mg Tab, 75 MG PO QAM, (Reported) Docusate Sodium (Docusate Sodium) 100 Mg Capsule, 100 MG PO BID Fentanyl (Duragesic) 25 Mcg Patch.td72, 25 MCG TOP Q3RD, (Reported) AFTER THREE DAYS TAKE OFF AND APPLY NEW PATCH TO A DIFFERENT AREA Insulin NPH Hum/Reg Insulin Hm (Humulin 70-30 Vial) 100 Unit/1 Ml Vial, 20 UNITS SC Q12H Isosorbide Mononitrate (Isosorbide Mononitrate ER) 120 Mg Tab, 120 MG PO QAM, (Reported) Lactulose (Lactulose) 10 Gm/15 Ml Solution, 15 ML PO BID, (Reported) Magnesium Oxide (Magnesium Oxide) 400 Mg Tab, 400 MG PO BID, (Reported) Multivitamin (Multivitamins) 1 Each Capsule, 1 CAP PO DAILY, (Reported) Pantoprazole Sodium (Pantoprazole Sodium) 40 Mg Tablet.dr, 40 MG PO DAILY, (Reported) Quetiapine Fumarate (Quetiapine Fumarate) 25 Mg Tablet, 25 MG PO QHS Ramipril (Ramipril) 2.5 Mg Capsule, 2.5 MG PO QHS, (Reported) Spironolactone (Spironolactone) 25 Mg Tab, 12.5 MG PO QAM, (Reported) Tamsulosin HCl (Flomax) 0.4 Mg Capsule, 0.4 MG PO DAILY, (Reported) Torsemide (Torsemide) 10 Mg Tablet, 10 MG PO BID@09,17 Scheduled PRN Acetaminophen (Acetaminophen) 325 Mg Tablet, 650 MG PO Q4H PRN for PAIN OR FEVER Hyoscyamine Sulfate (Hyoscyamine Sulfate) 0.125 Mg Tab.subl, 0.125 MG PO Q4HP PRN for TERMINAL SECRETIONS Use sublingually if unable to swallow Lorazepam (Ativan) 0.5 Mg Tablet, 0.5 MG PO Q4HP PRN for ANXIETY/AGITATION Use sublingually if unable to swallow Metoclopramide HCl (Metoclopramide HCl) 10 Mg Tablet, 10 MG PO TID PRN for NAUSEA OR VOMITING Morphine Sulfate (Morphine Sulfate) 100 Mg/5 Ml Solution, 0.25-1 ML PO Q2H PRN for PAIN OR DYSPNEA Use sublingually if unable to swallow Nitroglycerin (Nitrostat) 0.4 Mg Subl, 0.4 MG SL for ANGINA, (Reported) Oxycodone HCl/Acetaminophen (Oxycodon-Acetaminophen 7.5-325) 1 Each Tablet, 1 TAB PO QID PRN for pain, (Reported) Allergies Coded Allergies: No Known Allergies (Verified , 06/23/17) MADAY LOWE MD Mar 24, 2020 09:43
== END 2020-03-24 13:29 | disposition hospice, home (50) | DRG 177 ==
LOC: M ED 04:38 → M ED INP 09:24 → ENRESERV 09:44 → M PCU 10:15 → M MS5PR 03-17 19:24
PROVIDERS: ADMIT Family Medicine; ATTEND Family Medicine
DX: J15.5 Pneumonia due to Escherichia coli (principal); G93.41 Metabolic encephalopathy; I50.33 Acute on chronic diastolic (congestive) heart failure; C25.9 Malignant neoplasm of pancreas, unspecified; C78.7 Secondary malignant neoplasm of liver and intrahepatic bile duct; C79.31 Secondary malignant neoplasm of brain; R26.81 Unsteadiness on feet; I25.10 Atherosclerotic heart disease of native coronary artery without angina pectoris; E11.9 Type 2 diabetes mellitus without complications; Z66 Do not resuscitate; N40.1 Benign prostatic hyperplasia with lower urinary tract symptoms; F02.80 Dementia in other diseases classified elsewhere, unspecified severity, without behavioral disturbance, psychotic disturbance, mood disturbance, and anxiety; R33.9 Retention of urine, unspecified; G31.83 Neurocognitive disorder with Lewy bodies; G25.3 Myoclonus; G47.00 Insomnia, unspecified; Z20.828 Contact with and (suspected) exposure to other viral communicable diseases; Z95.810 Presence of automatic (implantable) cardiac defibrillator; Z95.1 Presence of aortocoronary bypass graft; Z79.82 Long term (current) use of aspirin; Z79.02 Long term (current) use of antithrombotics/antiplatelets; Z79.899 Other long term (current) drug therapy